=== PATIENT | male | born 1950 | race Two or more races ===

== ENCOUNTER 2016-05-03 12:01 | Inpatient (IN) | payer OTHER ==
[2016-05-03 13:46] VITALS: BMI 28.0
--- NOTE | 2016-05-03 14:17 | HP ---
Admission [facility] - [facility] Chief Complaint: I need help to stop drinking alcohol Allergies/Adverse Reactions: Allergies Allergy/AdvReac Type Severity Reaction Status Date / Time No Known Allergies Allergy Verified 06/29/14 12:30 History of Present Illness: 65 y/o m pt with h/o chronic alcoholism seeking rehab . Exam Limitations: No Limitations - Ebola screening Have you traveled outside of the country in the last 21 days: No Have you had contact with anyone from an Ebola affected area: No Have you been sick,other than usual withdrawal symptoms: No Do you have a fever: No - Review of Systems Musculoskeletal: reports: Muscle Weakness (lower extremities) Neuro: reports: Weakness Endocrine: reports: No Symptoms Reported Hematology: reports: No Symptoms Reported Psychiatric: reports: Agitated, Anxious Other Systems: Reviewed and Negative Patient History - Patient Medical History Hx Anemia: No Hx Asthma: No Hx Chronic Obstructive Pulmonary Disease (COPD): No Hx Cancer: No Hx Cardiac Disorders: No Hx Congestive Heart Failure: No Hx Hypertension: Yes (on meds.) Hx Hypercholesterolemia: Yes (on meds) Hx Pacemaker: No HX Cerebrovascular Accident: No Hx Seizures: Yes (seizures Last 05/27) Hx Dementia: No Hx Diabetes: Yes (TYPE II not on meds) Hx Gastrointestinal Disorders: No Hx Liver Disease: No Hx Genitourinary Disorders: No Hx Sexually Transmitted Disorders: No (HIV/aids 1994) Hx Renal Disease (ESRD): No Hx Thyroid Disease: No Hx Human Immunodeficiency Virus (HIV): Yes (HIV 1994) Hx Hepatitis C: Yes Hx Depression: Yes Hx Suicide Attempt: Yes (jump infront of the car 05/27) Hx Bipolar Disorder: No Hx Schizophrenia: Yes - Patient Surgical History Past Surgical History: Yes Hx Neurologic Surgery: No Hx Cataract Extraction: No Hx Cardiac Surgery: No Hx Lung Surgery: No Hx Breast Surgery: No Hx Breast Biopsy: No Hx Abdominal Surgery: Yes (left hernia repair ) Hx Appendectomy: No Hx Cholecystectomy: No Hx Genitourinary Surgery: No Hx Section: No Hx Orthopedic Surgery: Yes (surgery for polio as a child.la lower ext) Other Surgical History: Left inguinal hernia repair in 2004 Anesthesia Reaction: No - PPD History Documented Results: Positive w/o proof PPD to be Administered?: No - Reproductive History Patient is a Female of Child Bearing Age (11 -55 yrs old): Yes - Smoking Cessation Smoking history: Current every day smoker Have you smoked in the past 12 months: Yes Aproximately how many cigarettes per day: 1 Cigars Per Day: 0 Hx Chewing Tobacco Use: No Initiated information on smoking cessation: Yes 'Breaking Loose' booklet given: 05/03/16 - Substance & Tx. History Hx Alcohol Use: Yes Hx Substance Use: No Substance Use Type: Alcohol Hx Substance Use Treatment: Yes - Substances Abused Alcohol Route: Oral Frequency: Daily Amount used: vodka 1pt/d, beer 10/d Age of first use: 11 Date of Last Use: 05/03/16 Family Disease History - Family Disease History Family Disease History: Other: Father (/alcoholic), Mother (), Brother (alcoholic/dug abuse) Admission Physical Exam [facility] - Vital Signs Vital Signs: Vital Signs - 24 hr 05/03/16 13:45 Temperature 97.1 F L Pulse Rate 101 H Respiratory 20 Rate Blood Pressure 138/93 65 y/o m pt aox3 ambulates with a cane in nad , cooperative nwith examq. - Physical General Appearance: Yes: Appropriately Dressed, Anxious HEENTM: Yes: EOMI, Hearing grossly Normal, Normal Voice, THERESA, Other (multiple missing teeth) Respiratory: Yes: Chest Non-Tender, Lungs Clear, Normal Breath Sounds, No Respiratory Distress Neck: Yes: Supple Breast: Yes: Within Normal Limits Cardiology: Yes: Regular Rhythm, Regular Rate, S1, S2 Abdominal: Yes: Increased Bowel Sounds, Protuberent, Distended, Hepatomegaly, Spleenomegaly Genitourinary: Yes: Frequency Back: Yes: Decreased Range of Motion Musculoskeletal: Yes: Other (abn. 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 NML intact, Fully Oriented, Alert, Motor Strength 5/5, Normal Response Integumentary: Yes: Within Normal Limits Lymphatic: Yes: Within Normal Limits - Diagnostic (1) AIDS Current Visit: Yes Status: Chronic (2) Alcohol dependence Current Visit: Yes Status: Chronic Qualifiers: Complication of substance-induced condition: with unspecified complication (3) Hypercholesteremia Current Visit: Yes Status: Chronic (4) Nicotine dependence Current Visit: Yes Status: Chronic Qualifiers: Nicotine product type: cigarettes Substance use status: uncomplicated Qualified Code(s): F17.210 - Nicotine dependence, cigarettes, uncomplicated (5) S/P clubfoot correction at Current Visit: No Status: Inactive (6) Poliomyelitis Current Visit: No Status: Inactive (7) Schizophrenia, paranoid type Current Visit: Yes Status: Chronic (8) Use of cane as ambulatory aid Current Visit: Yes Status: Chronic (9) Alcohol dependence with uncomplicated withdrawal Current Visit: Yes Status: Chronic Comment: pt was a [facility] from 04/18/16-04/26/16. Cleared for Admission [facility] - Detox or Rehab Claeared for Rehab Admission: Yes [facility] Breath Alcohol Content Breath Alcohol Content: 0.103 Urine Drug Screen - Results Drug Screen Negative: No Urine Drug Screen Results: BZO-Benzodiazepines
[2016-05-03] MEDS ORDERED: ACETAMINOPHEN 325 MG TABLET (FP) PO PRN (14:41)
[2016-05-03] MEDS ORDERED: LOPERAMIDE HCL 2 MG CAPSULE PO PRN (14:41)
[2016-05-03] MEDS ORDERED: IBUPROFEN 400 MG TABLET (FP) PO PRN (14:41)
[2016-05-03] MEDS ORDERED: MAG HYDROX/AL HYDROX/SIMETH 30 ML UNIT-DOSE CUP PO PRN (14:41)
[2016-05-03] MEDS ORDERED: P-EPHED 60MG/TRIPROLIDI 2.5MG TABLET PO PRN (14:41)
[2016-05-03] MEDS ORDERED: NICOTINE POLACRILEX 2 MG GUM BC PRN (14:41)
[2016-05-03] MEDS ORDERED: diphenhydrAMINE HCL 50 MG CAPSULE PO PRN (14:41)
[2016-05-03] MEDS ORDERED: guaiFENesin/D-METHORPHAN HB 10 ML UNIT-DOSE CUPS PO PRN (14:41)
[2016-05-03] MEDS ORDERED: MAGNESIUM CITRATE 300 ML BOTTLE PO PRN (14:41)
[2016-05-03] MEDS ORDERED: MENTHOL/PHENOL 1 EACH UD MM PRN (14:41)
[2016-05-03] MEDS ORDERED: MAGNESIUM HYDROX 2400MG/30ML ORAL SUSPENSION 30 ML CUP PO PRN (14:41)
[2016-05-03] MEDS: GEMFIBROZIL 600 MG TABLET (FP) PO SCH (17:19)
[2016-05-03 20:35] LABS: URINE APPEARANCE CLEAR; URINE BILIRUBIN NEGATIVE (NEGATIVE); URINE COLOR COLORLESS; URINE GLUCOSE (UA) NEGATIVE (NEGATIVE); URINE KETONE NEGATIVE (NEGATIVE); URINE LEUK ESTERASE NEGATIVE (NEGATIVE); URINE NITRITE NEGATIVE (NEGATIVE); URINE UROBILINOGEN NEGATIVE E.U./dl (0.2-1.0)
[2016-05-03 20:38] LABS: URINE BLOOD 1+ (NEGATIVE); URINE PROTEIN 2+ (NEGATIVE)
[2016-05-03 21:01] LABS: URINE BACTERIA RARE /hpf (NONE SEEN); URINE MUCUS RARE; URINE RBC <1 /hpf (0-3); URINE WBC <1 /hpf (3-5)
[2016-05-03] MEDS: levETIRAcetam 500 MG TABLET (FP) PO SCH (21:16)
[2016-05-03] MEDS: ABACAVIR SULFATE 300 MG TABLET PO SCH (21:16)
[2016-05-03] MEDS: GABAPENTIN 300 MG CAPSULE (FP) PO SCH (21:17)
[2016-05-03] MEDS: THIAMINE HCL 100 MG TABLET (FP) PO SCH (21:17)
[2016-05-04] MEDS: GABAPENTIN 300 MG CAPSULE (FP) PO SCH ×3 (06:19→21:09)
[2016-05-04] MEDS: GEMFIBROZIL 600 MG TABLET (FP) PO SCH ×2 (06:40→16:51)
[2016-05-04] MEDS ORDERED: PATIENT'S OWN MEDICATION (NON-FORMULARY) (Abacavir Sulfate/Lamivudine [Epzicom -] 1 TAB) PO SCH (10:00)
[2016-05-04 10:08] LABS: MCH 29.3 pg (25.7-33.7); MCHC 33.1 g/dl (32.0-35.9); MEAN CELL VOLUME 88.3 fl (80-96); MEAN PLT VOLUME 9.6 fl (7.5-11.1); PLATELET COUNT 232 K/MM3 (134-434); RDW 14.8 % (11.9-15.9); WHITE BLOOD COUNT 5.3 K/mm3 (4.0-10.0)
[2016-05-04] MEDS: ERGOCALCIFEROL (VITAMIN D2) 50,000 UNIT CAPSULE (FP) PO SCH (10:25)
[2016-05-04] MEDS: DAPSONE 100 MG TABLET PO SCH (10:26)
[2016-05-04] MEDS: RITONAVIR 100 MG TABLET PO SCH (10:26)
[2016-05-04] MEDS: PRENATAL VITAMINS W/ FOLIC ACID TABLET (FP) PO SCH (10:26)
[2016-05-04] MEDS: DARUNAVIR ETHANOLATE 800 MG TAB PO SCH (10:28)
[2016-05-04] MEDS: PANTOPRAZOLE 40 MG TABLET (FP) PO SCH (10:29)
[2016-05-04] MEDS: HYDROCHLOROTHIAZIDE 25 MG TABLET (FP) PO SCH (10:29)
[2016-05-04] MEDS: levETIRAcetam 500 MG TABLET (FP) PO SCH ×2 (10:29→21:09)
[2016-05-04] MEDS: ABACAVIR SULFATE 300 MG TABLET PO SCH ×2 (10:29→21:09)
[2016-05-04] MEDS: METOPROLOL SUCCINATE 25 MG TAB.SR.24H (FP) PO SCH (10:29)
[2016-05-04 11:16] LABS: ALBUMIN 2.7 g/dl (3.4-5.0); ALK PHOS 72 U/L (45-117); ANION GAP 12 (8-16); BILIRUBIN,TOTAL 0.5 mg/dL (0.2-1.0); CALCIUM 8.5 mg/dL (8.5-10.1); CO2 22 mmol/L (21-32); CREATININE 1.2 mg/dL (0.7-1.3); GLUCOSE,RANDOM 90 mg/dL (74-106); SGOT/AST 70 U/L (15-37); SGPT/ALT 74 U/L (12-78); TOT PROT 8.7 g/dl (6.4-8.2)
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
--- NOTE | 2016-05-04 17:15 | EKG ---
Test Reason : Blood Pressure : / mmHG Vent. Rate : 106 BPM Atrial Rate : 106 BPM P-R Int : 176 ms QRS Dur : 080 ms QT Int : 320 ms P-R-T Axes : 071 061 121 degrees QTc Int : 425 ms SINUS TACHYCARDIA NONSPECIFIC T WAVE ABNORMALITY ABNORMAL ECG NO PREVIOUS ECGS AVAILABLE Confirmed by BESSY MARES MD ([id number]) on 05/04/2016 5:15:26 PM Referred By: Confirmed By:BESSY MARES MD
[2016-05-04] MEDS: QUEtiapine FUMARATE 100 MG TABLET (FP) PO SCH (21:09)
[2016-05-04] MEDS: THIAMINE HCL 100 MG TABLET (FP) PO SCH (21:09)
[2016-05-05] MEDS: GEMFIBROZIL 600 MG TABLET (FP) PO SCH ×2 (06:18→16:54)
[2016-05-05] MEDS: GABAPENTIN 300 MG CAPSULE (FP) PO SCH ×3 (06:18→21:06)
[2016-05-05] MEDS: DARUNAVIR ETHANOLATE 800 MG TAB PO SCH (09:50)
[2016-05-05] MEDS: PANTOPRAZOLE 40 MG TABLET (FP) PO SCH (09:50)
[2016-05-05] MEDS: ABACAVIR SULFATE 300 MG TABLET PO SCH ×2 (09:50→21:06)
[2016-05-05] MEDS: levETIRAcetam 500 MG TABLET (FP) PO SCH ×2 (09:50→21:06)
[2016-05-05] MEDS: HYDROCHLOROTHIAZIDE 25 MG TABLET (FP) PO SCH (09:50)
[2016-05-05] MEDS: DAPSONE 100 MG TABLET PO SCH (09:50)
[2016-05-05] MEDS: PRENATAL VITAMINS W/ FOLIC ACID TABLET (FP) PO SCH (09:50)
[2016-05-05] MEDS: METOPROLOL SUCCINATE 25 MG TAB.SR.24H (FP) PO SCH (09:50)
[2016-05-05] MEDS: RITONAVIR 100 MG TABLET PO SCH (09:52)
[2016-05-05] MEDS: PARoxetine HCL 20 MG TABLET (FP) PO SCH (10:53)
[2016-05-05] MEDS: QUEtiapine FUMARATE 100 MG TABLET (FP) PO SCH (21:06)
[2016-05-05] MEDS: THIAMINE HCL 100 MG TABLET (FP) PO SCH (21:06)
[2016-05-06] MEDS: GABAPENTIN 300 MG CAPSULE (FP) PO SCH ×3 (06:22→21:07)
[2016-05-06] MEDS: GEMFIBROZIL 600 MG TABLET (FP) PO SCH ×2 (06:22→16:43)
[2016-05-06] MEDS: DAPSONE 100 MG TABLET PO SCH (10:26)
[2016-05-06] MEDS: HYDROCHLOROTHIAZIDE 25 MG TABLET (FP) PO SCH (10:26)
[2016-05-06] MEDS: PARoxetine HCL 20 MG TABLET (FP) PO SCH (10:26)
[2016-05-06] MEDS: levETIRAcetam 500 MG TABLET (FP) PO SCH ×2 (10:26→21:07)
[2016-05-06] MEDS: PANTOPRAZOLE 40 MG TABLET (FP) PO SCH (10:26)
[2016-05-06] MEDS: PRENATAL VITAMINS W/ FOLIC ACID TABLET (FP) PO SCH (10:26)
[2016-05-06] MEDS: RITONAVIR 100 MG TABLET PO SCH (10:26)
[2016-05-06] MEDS: DARUNAVIR ETHANOLATE 800 MG TAB PO SCH (10:26)
[2016-05-06] MEDS: METOPROLOL SUCCINATE 25 MG TAB.SR.24H (FP) PO SCH (10:26)
[2016-05-06] MEDS: ABACAVIR SULFATE 300 MG TABLET PO SCH ×2 (10:26→21:07)
[2016-05-06] MEDS: THIAMINE HCL 100 MG TABLET (FP) PO SCH (21:07)
[2016-05-06] MEDS: QUEtiapine FUMARATE 100 MG TABLET (FP) PO SCH (21:08)
[2016-05-07] MEDS: GEMFIBROZIL 600 MG TABLET (FP) PO SCH ×2 (06:10→17:00)
[2016-05-07] MEDS: GABAPENTIN 300 MG CAPSULE (FP) PO SCH ×3 (06:10→21:18)
[2016-05-07] MEDS: PANTOPRAZOLE 40 MG TABLET (FP) PO SCH (10:42)
[2016-05-07] MEDS: DAPSONE 100 MG TABLET PO SCH (10:43)
[2016-05-07] MEDS: HYDROCHLOROTHIAZIDE 25 MG TABLET (FP) PO SCH (10:43)
[2016-05-07] MEDS: METOPROLOL SUCCINATE 25 MG TAB.SR.24H (FP) PO SCH (10:43)
[2016-05-07] MEDS: ABACAVIR SULFATE 300 MG TABLET PO SCH ×2 (10:43→21:17)
[2016-05-07] MEDS: PRENATAL VITAMINS W/ FOLIC ACID TABLET (FP) PO SCH (10:43)
[2016-05-07] MEDS: DARUNAVIR ETHANOLATE 800 MG TAB PO SCH (10:43)
[2016-05-07] MEDS: PARoxetine HCL 20 MG TABLET (FP) PO SCH (10:43)
[2016-05-07] MEDS: levETIRAcetam 500 MG TABLET (FP) PO SCH ×2 (10:43→21:17)
[2016-05-07] MEDS: RITONAVIR 100 MG TABLET PO SCH (10:44)
[2016-05-07] MEDS: QUEtiapine FUMARATE 100 MG TABLET (FP) PO SCH (21:17)
[2016-05-07] MEDS: THIAMINE HCL 100 MG TABLET (FP) PO SCH (21:17)
[2016-05-08] MEDS: GEMFIBROZIL 600 MG TABLET (FP) PO SCH ×2 (06:20→16:50)
[2016-05-08] MEDS: GABAPENTIN 300 MG CAPSULE (FP) PO SCH ×3 (06:21→21:09)
[2016-05-08] MEDS: HYDROCHLOROTHIAZIDE 25 MG TABLET (FP) PO SCH (09:56)
[2016-05-08] MEDS: PANTOPRAZOLE 40 MG TABLET (FP) PO SCH (09:56)
[2016-05-08] MEDS: PRENATAL VITAMINS W/ FOLIC ACID TABLET (FP) PO SCH (09:56)
[2016-05-08] MEDS: levETIRAcetam 500 MG TABLET (FP) PO SCH ×2 (09:56→21:08)
[2016-05-08] MEDS: ABACAVIR SULFATE 300 MG TABLET PO SCH ×2 (09:56→21:08)
[2016-05-08] MEDS: DAPSONE 100 MG TABLET PO SCH (09:56)
[2016-05-08] MEDS: DARUNAVIR ETHANOLATE 800 MG TAB PO SCH (09:57)
[2016-05-08] MEDS: METOPROLOL SUCCINATE 25 MG TAB.SR.24H (FP) PO SCH (09:57)
[2016-05-08] MEDS: PARoxetine HCL 20 MG TABLET (FP) PO SCH (09:57)
[2016-05-08] MEDS: RITONAVIR 100 MG TABLET PO SCH (09:57)
--- NOTE | 2016-05-08 13:42 | PN ---
Psychiatric Progress Note Vital Signs: Vital Signs Period Temp Pulse Resp BP Sys/Alejandre Pulse Ox Last 24 Hr 97.3 F 92 18-18 141/89 Date of Session: 05/08/16 Chief Complaint:: progress update HPI: Patient is addressing alcohol dependence comorbid Schizophrenia ROS: HTN, Seizure Disorder, type II DM and HIV+ medically managed. Current Medications: Active Medications Generic Name Dose Route Start Last Admin Trade Name Freq PRN Reason Stop Dose Admin Abacavir Sulfate 300 mg 05/03/16 22:00 05/08/16 09:56 Ziagen - PO 300 mg BID IDA Administration Acetaminophen 650 mg 05/03/16 14:41 Tylenol - PO Q4H PRN PAIN Al Hydroxide/Mg Hydroxide 30 ml 05/03/16 14:41 Mylanta Oral Suspension - PO Q6H PRN DYSPEPSIA Dapsone 100 mg 05/04/16 10:00 05/08/16 09:56 Dapsone - PO 100 mg DAILY IDA Administration Darunavir 800 mg 05/04/16 10:00 05/08/16 09:57 Prezista - PO 800 mg DAILY IDA Administration Diphenhydramine HCl 50 mg 05/03/16 14:41 Benadryl - PO HSMR1 PRN INSOMNIA Ergocalciferol 50,000 unit 05/04/16 10:00 05/04/16 10:25 Drisdol - PO 50,000 unit Th@1000 IDA Administration Eucalyptus/Menthol/Phenol/Sorbitol 1 each 05/03/16 14:41 Cepastat Lozenge - MM Q4H PRN SORE THROAT Gabapentin 300 mg 05/03/16 22:00 05/08/16 06:21 Neurontin - PO 300 mg TID IDA Administration Gemfibrozil 600 mg 05/03/16 16:30 05/08/16 06:20 Lopid - PO 600 mg BIDAC IDA Administration Guaifenesin 10 ml 05/03/16 14:41 Robitussin Dm - PO Q6H PRN COUGH Hydrochlorothiazide 25 mg 05/04/16 10:00 05/08/16 09:56 Hctz - PO 25 mg DAILY IDA Administration Ibuprofen 400 mg 05/03/16 14:41 Motrin - PO Q6H PRN SEVERE PAIN Lamivudine 300 mg 05/04/16 10:00 05/08/16 09:56 Epivir - PO 300 mg DAILY IDA Administration Levetiracetam 500 mg 05/03/16 22:00 05/08/16 09:56 Keppra - PO 500 mg BID IDA Administration Loperamide HCl 4 mg 05/03/16 14:41 Imodium - PO Q6H PRN DIARRHEA Magnesium Citrate 300 ml 05/03/16 14:41 Citroma - PO Q48H PRN CONSTIPATION Magnesium Hydroxide 30 ml 05/03/16 14:41 Milk Of Magnesia - PO DAILY PRN CONSTIPATION Metoprolol Succinate 25 mg 05/04/16 10:00 05/08/16 09:57 Toprol Xl - PO 25 mg DAILY IDA Administration Nicotine Polacrilex 2 mg 05/03/16 14:41 Nicorette Gum - BC Q2H PRN NICOTINE REPLACEMENT RX Pantoprazole Sodium 40 mg 05/04/16 10:00 05/08/16 09:56 Protonix - PO 40 mg DAILY IDA Administration Paroxetine HCl 40 mg 05/05/16 10:00 05/08/16 09:57 Paxil - PO 40 mg DAILY IDA Administration Multivit/Folic Acid/Iron 1 tab 05/04/16 10:00 05/08/16 09:56 Vitamins (Sjr) - PO 1 tab DAILY IDA Administration Pseudoephedrine/Triprolidine 1 combo 05/03/16 14:41 Actifed - PO TID PRN NASAL CONGESTION Quetiapine Fumarate 100 mg 05/04/16 22:00 05/07/16 21:17 Seroquel - PO 100 mg HS IDA Administration Ritonavir 100 mg 05/04/16 10:00 05/08/16 09:57 Norvir - PO 100 mg DAILY IDA Administration Thiamine HCl 100 mg 05/03/16 22:00 05/07/16 21:17 Vitamin B1 - PO 100 mg HS IDA Administration Medication(s) Change(s): increase Seoquel 200 mg/hs Current Side Effect: No Lab tests ordered: No Lab tests reviewed: Yes Provider note:: Patient generally adjusted well to the unit, he attends groups, he reports that he has racing thoughts at nights which keep him up all nigghts, recalls was on 400 mg po Seroquel discussed indications/properties of medications, will increase. Sleeping hygiene discussed with the patient, will continue to monitor progress. Total face to face time:: 30 Mental Status Exam - Mental Status Exam Alert and Oriented to: Time, Place, Person Cognitive Function: Good Patient Appearance: Well Groomed Mood: Sad, Anxious Affect: Appropriate, Mood Congruent Patient Behavior: Appropriate, Cooperative Speech Pattern: Clear, Appropriate Voice Loudness: Normal Thought Process: Intact, Goal Oriented Thought Disorder: Not Present Hallucinations: Denies Suicidal Ideation: Denies Homicidal Ideation: Denies Insight/Judgement: Fair Sleep: Poorly, Difficulty falling asleep Appetite: Good Muscle strength/Tone: Normal Gait/Station: Normal Psychiatric Treatment Plan - Problem List (1) Alcohol dependence Current Visit: Yes Qualifiers: Complication of substance-induced condition: with unspecified complication (2) Hypercholesteremia Current Visit: Yes (3) Nicotine dependence Current Visit: Yes Qualifiers: Nicotine product type: cigarettes Substance use status: uncomplicated Qualified Code(s): F17.210 - Nicotine dependence, cigarettes, uncomplicated (4) Paranoid schizophrenia Current Visit: Yes (5) Use of cane as ambulatory aid Current Visit: Yes
[2016-05-08] MEDS: THIAMINE HCL 100 MG TABLET (FP) PO SCH (21:08)
[2016-05-08] MEDS: QUEtiapine FUMARATE 200 MG TABLET PO SCH (21:09)
[2016-05-09] MEDS: GABAPENTIN 300 MG CAPSULE (FP) PO SCH ×3 (06:32→21:35)
[2016-05-09] MEDS: GEMFIBROZIL 600 MG TABLET (FP) PO SCH ×2 (06:32→16:55)
[2016-05-09] MEDS: PANTOPRAZOLE 40 MG TABLET (FP) PO SCH (09:29)
[2016-05-09] MEDS: DAPSONE 100 MG TABLET PO SCH (09:29)
[2016-05-09] MEDS: METOPROLOL SUCCINATE 25 MG TAB.SR.24H (FP) PO SCH (09:29)
[2016-05-09] MEDS: HYDROCHLOROTHIAZIDE 25 MG TABLET (FP) PO SCH (09:29)
[2016-05-09] MEDS: ABACAVIR SULFATE 300 MG TABLET PO SCH ×2 (09:29→21:35)
[2016-05-09] MEDS: DARUNAVIR ETHANOLATE 800 MG TAB PO SCH (09:30)
[2016-05-09] MEDS: levETIRAcetam 500 MG TABLET (FP) PO SCH ×2 (09:30→21:35)
[2016-05-09] MEDS: RITONAVIR 100 MG TABLET PO SCH (09:30)
[2016-05-09] MEDS: PARoxetine HCL 20 MG TABLET (FP) PO SCH (09:30)
[2016-05-09] MEDS: PRENATAL VITAMINS W/ FOLIC ACID TABLET (FP) PO SCH (09:32)
[2016-05-09] MEDS: THIAMINE HCL 100 MG TABLET (FP) PO SCH (21:35)
[2016-05-09] MEDS: QUEtiapine FUMARATE 200 MG TABLET PO SCH (21:35)
[2016-05-10] MEDS: GEMFIBROZIL 600 MG TABLET (FP) PO SCH ×2 (06:20→17:01)
[2016-05-10] MEDS: GABAPENTIN 300 MG CAPSULE (FP) PO SCH ×3 (06:20→21:07)
[2016-05-10] MEDS: ABACAVIR SULFATE 300 MG TABLET PO SCH ×2 (10:37→21:07)
[2016-05-10] MEDS: PARoxetine HCL 20 MG TABLET (FP) PO SCH (10:37)
[2016-05-10] MEDS: DAPSONE 100 MG TABLET PO SCH (10:37)
[2016-05-10] MEDS: levETIRAcetam 500 MG TABLET (FP) PO SCH ×2 (10:37→21:08)
[2016-05-10] MEDS: PANTOPRAZOLE 40 MG TABLET (FP) PO SCH (10:37)
[2016-05-10] MEDS: METOPROLOL SUCCINATE 25 MG TAB.SR.24H (FP) PO SCH (10:37)
[2016-05-10] MEDS: HYDROCHLOROTHIAZIDE 25 MG TABLET (FP) PO SCH (10:38)
[2016-05-10] MEDS: DARUNAVIR ETHANOLATE 800 MG TAB PO SCH (10:38)
[2016-05-10] MEDS: RITONAVIR 100 MG TABLET PO SCH (10:38)
[2016-05-10] MEDS: PRENATAL VITAMINS W/ FOLIC ACID TABLET (FP) PO SCH (10:38)
[2016-05-10] MEDS: QUEtiapine FUMARATE 200 MG TABLET PO SCH (21:07)
[2016-05-10] MEDS: THIAMINE HCL 100 MG TABLET (FP) PO SCH (21:07)
[2016-05-11] MEDS: GABAPENTIN 300 MG CAPSULE (FP) PO SCH ×3 (06:17→21:45)
[2016-05-11] MEDS: GEMFIBROZIL 600 MG TABLET (FP) PO SCH ×2 (06:17→16:42)
[2016-05-11] MEDS: DARUNAVIR ETHANOLATE 800 MG TAB PO SCH (10:34)
[2016-05-11] MEDS: ABACAVIR SULFATE 300 MG TABLET PO SCH ×2 (10:34→21:45)
[2016-05-11] MEDS: METOPROLOL SUCCINATE 25 MG TAB.SR.24H (FP) PO SCH (10:34)
[2016-05-11] MEDS: PARoxetine HCL 20 MG TABLET (FP) PO SCH (10:34)
[2016-05-11] MEDS: levETIRAcetam 500 MG TABLET (FP) PO SCH ×2 (10:34→21:45)
[2016-05-11] MEDS: DAPSONE 100 MG TABLET PO SCH (10:34)
[2016-05-11] MEDS: PANTOPRAZOLE 40 MG TABLET (FP) PO SCH (10:34)
[2016-05-11] MEDS: HYDROCHLOROTHIAZIDE 25 MG TABLET (FP) PO SCH (10:34)
[2016-05-11] MEDS: PRENATAL VITAMINS W/ FOLIC ACID TABLET (FP) PO SCH (10:34)
[2016-05-11] MEDS: RITONAVIR 100 MG TABLET PO SCH (10:40)
[2016-05-11] MEDS: ERGOCALCIFEROL (VITAMIN D2) 50,000 UNIT CAPSULE (FP) PO SCH (12:00)
[2016-05-11] MEDS: THIAMINE HCL 100 MG TABLET (FP) PO SCH (21:45)
[2016-05-11] MEDS: QUEtiapine FUMARATE 200 MG TABLET PO SCH (21:45)
[2016-05-12] MEDS: GABAPENTIN 300 MG CAPSULE (FP) PO SCH ×3 (06:47→21:07)
[2016-05-12] MEDS: GEMFIBROZIL 600 MG TABLET (FP) PO SCH ×2 (06:47→16:41)
[2016-05-12] MEDS: PARoxetine HCL 20 MG TABLET (FP) PO SCH (10:39)
[2016-05-12] MEDS: levETIRAcetam 500 MG TABLET (FP) PO SCH ×2 (10:39→21:07)
[2016-05-12] MEDS: METOPROLOL SUCCINATE 25 MG TAB.SR.24H (FP) PO SCH (10:39)
[2016-05-12] MEDS: ABACAVIR SULFATE 300 MG TABLET PO SCH ×2 (10:39→21:07)
[2016-05-12] MEDS: DAPSONE 100 MG TABLET PO SCH (10:39)
[2016-05-12] MEDS: PANTOPRAZOLE 40 MG TABLET (FP) PO SCH (10:39)
[2016-05-12] MEDS: HYDROCHLOROTHIAZIDE 25 MG TABLET (FP) PO SCH (10:39)
[2016-05-12] MEDS: PRENATAL VITAMINS W/ FOLIC ACID TABLET (FP) PO SCH (10:39)
[2016-05-12] MEDS: DARUNAVIR ETHANOLATE 800 MG TAB PO SCH (10:39)
[2016-05-12] MEDS: RITONAVIR 100 MG TABLET PO SCH (10:40)
[2016-05-12] MEDS: THIAMINE HCL 100 MG TABLET (FP) PO SCH (21:07)
[2016-05-12] MEDS: QUEtiapine FUMARATE 200 MG TABLET PO SCH (21:07)
[2016-05-13] MEDS: GEMFIBROZIL 600 MG TABLET (FP) PO SCH ×2 (06:28→16:46)
[2016-05-13] MEDS: GABAPENTIN 300 MG CAPSULE (FP) PO SCH ×3 (06:29→21:22)
[2016-05-13] MEDS: DARUNAVIR ETHANOLATE 800 MG TAB PO SCH (10:29)
[2016-05-13] MEDS: ABACAVIR SULFATE 300 MG TABLET PO SCH ×2 (10:29→21:22)
[2016-05-13] MEDS: DAPSONE 100 MG TABLET PO SCH (10:29)
[2016-05-13] MEDS: METOPROLOL SUCCINATE 25 MG TAB.SR.24H (FP) PO SCH (10:29)
[2016-05-13] MEDS: levETIRAcetam 500 MG TABLET (FP) PO SCH ×2 (10:29→21:22)
[2016-05-13] MEDS: PANTOPRAZOLE 40 MG TABLET (FP) PO SCH (10:29)
[2016-05-13] MEDS: HYDROCHLOROTHIAZIDE 25 MG TABLET (FP) PO SCH (10:29)
[2016-05-13] MEDS: PARoxetine HCL 20 MG TABLET (FP) PO SCH (10:30)
[2016-05-13] MEDS: RITONAVIR 100 MG TABLET PO SCH (10:30)
[2016-05-13] MEDS: PRENATAL VITAMINS W/ FOLIC ACID TABLET (FP) PO SCH (10:30)
[2016-05-13] MEDS: QUEtiapine FUMARATE 200 MG TABLET PO SCH (21:22)
[2016-05-13] MEDS: THIAMINE HCL 100 MG TABLET (FP) PO SCH (21:22)
[2016-05-14] MEDS: GEMFIBROZIL 600 MG TABLET (FP) PO SCH ×2 (06:37→16:39)
[2016-05-14] MEDS: GABAPENTIN 300 MG CAPSULE (FP) PO SCH ×3 (06:37→21:08)
[2016-05-14] MEDS: RITONAVIR 100 MG TABLET PO SCH (10:33)
[2016-05-14] MEDS: PARoxetine HCL 20 MG TABLET (FP) PO SCH (10:33)
[2016-05-14] MEDS: PANTOPRAZOLE 40 MG TABLET (FP) PO SCH (10:34)
[2016-05-14] MEDS: HYDROCHLOROTHIAZIDE 25 MG TABLET (FP) PO SCH (10:34)
[2016-05-14] MEDS: PRENATAL VITAMINS W/ FOLIC ACID TABLET (FP) PO SCH (10:34)
[2016-05-14] MEDS: METOPROLOL SUCCINATE 25 MG TAB.SR.24H (FP) PO SCH (10:34)
[2016-05-14] MEDS: levETIRAcetam 500 MG TABLET (FP) PO SCH ×2 (10:34→21:08)
[2016-05-14] MEDS: DAPSONE 100 MG TABLET PO SCH (10:34)
[2016-05-14] MEDS: DARUNAVIR ETHANOLATE 800 MG TAB PO SCH (10:35)
[2016-05-14] MEDS: ABACAVIR SULFATE 300 MG TABLET PO SCH ×2 (10:35→21:08)
[2016-05-14] MEDS: QUEtiapine FUMARATE 200 MG TABLET PO SCH (21:08)
[2016-05-14] MEDS: THIAMINE HCL 100 MG TABLET (FP) PO SCH (21:08)
[2016-05-15] MEDS: GEMFIBROZIL 600 MG TABLET (FP) PO SCH ×2 (06:12→16:44)
[2016-05-15] MEDS: GABAPENTIN 300 MG CAPSULE (FP) PO SCH ×3 (06:12→21:10)
[2016-05-15] MEDS: PRENATAL VITAMINS W/ FOLIC ACID TABLET (FP) PO SCH (10:27)
[2016-05-15] MEDS: levETIRAcetam 500 MG TABLET (FP) PO SCH ×2 (10:27→21:10)
[2016-05-15] MEDS: DARUNAVIR ETHANOLATE 800 MG TAB PO SCH (10:27)
[2016-05-15] MEDS: HYDROCHLOROTHIAZIDE 25 MG TABLET (FP) PO SCH (10:27)
[2016-05-15] MEDS: ABACAVIR SULFATE 300 MG TABLET PO SCH ×2 (10:27→21:10)
[2016-05-15] MEDS: PARoxetine HCL 20 MG TABLET (FP) PO SCH (10:27)
[2016-05-15] MEDS: METOPROLOL SUCCINATE 25 MG TAB.SR.24H (FP) PO SCH (10:27)
[2016-05-15] MEDS: DAPSONE 100 MG TABLET PO SCH (10:27)
[2016-05-15] MEDS: PANTOPRAZOLE 40 MG TABLET (FP) PO SCH (10:27)
[2016-05-15] MEDS: RITONAVIR 100 MG TABLET PO SCH (10:28)
[2016-05-15] MEDS: QUEtiapine FUMARATE 200 MG TABLET PO SCH (21:10)
[2016-05-15] MEDS: THIAMINE HCL 100 MG TABLET (FP) PO SCH (21:10)
[2016-05-16] MEDS: GABAPENTIN 300 MG CAPSULE (FP) PO SCH ×3 (06:18→21:22)
[2016-05-16] MEDS: GEMFIBROZIL 600 MG TABLET (FP) PO SCH ×2 (06:18→16:47)
[2016-05-16] MEDS: METOPROLOL SUCCINATE 25 MG TAB.SR.24H (FP) PO SCH (10:20)
[2016-05-16] MEDS: HYDROCHLOROTHIAZIDE 25 MG TABLET (FP) PO SCH (10:20)
[2016-05-16] MEDS: PANTOPRAZOLE 40 MG TABLET (FP) PO SCH (10:20)
[2016-05-16] MEDS: DAPSONE 100 MG TABLET PO SCH (10:20)
[2016-05-16] MEDS: ABACAVIR SULFATE 300 MG TABLET PO SCH ×2 (10:20→21:22)
[2016-05-16] MEDS: PARoxetine HCL 20 MG TABLET (FP) PO SCH (10:20)
[2016-05-16] MEDS: levETIRAcetam 500 MG TABLET (FP) PO SCH ×2 (10:20→21:22)
[2016-05-16] MEDS: DARUNAVIR ETHANOLATE 800 MG TAB PO SCH (10:20)
[2016-05-16] MEDS: PRENATAL VITAMINS W/ FOLIC ACID TABLET (FP) PO SCH (10:20)
[2016-05-16] MEDS: RITONAVIR 100 MG TABLET PO SCH (10:21)
[2016-05-16] MEDS: THIAMINE HCL 100 MG TABLET (FP) PO SCH (21:22)
[2016-05-16] MEDS: QUEtiapine FUMARATE 200 MG TABLET PO SCH (21:22)
[2016-05-17] MEDS: GABAPENTIN 300 MG CAPSULE (FP) PO SCH ×3 (06:26→21:08)
[2016-05-17] MEDS: GEMFIBROZIL 600 MG TABLET (FP) PO SCH ×2 (06:26→16:41)
[2016-05-17] MEDS: METOPROLOL SUCCINATE 25 MG TAB.SR.24H (FP) PO SCH (10:41)
[2016-05-17] MEDS: DAPSONE 100 MG TABLET PO SCH (10:41)
[2016-05-17] MEDS: RITONAVIR 100 MG TABLET PO SCH (10:41)
[2016-05-17] MEDS: DARUNAVIR ETHANOLATE 800 MG TAB PO SCH (10:41)
[2016-05-17] MEDS: PRENATAL VITAMINS W/ FOLIC ACID TABLET (FP) PO SCH (10:41)
[2016-05-17] MEDS: PANTOPRAZOLE 40 MG TABLET (FP) PO SCH (10:41)
[2016-05-17] MEDS: levETIRAcetam 500 MG TABLET (FP) PO SCH ×2 (10:41→21:54)
[2016-05-17] MEDS: ABACAVIR SULFATE 300 MG TABLET PO SCH ×2 (10:41→21:07)
[2016-05-17] MEDS: HYDROCHLOROTHIAZIDE 25 MG TABLET (FP) PO SCH (10:41)
[2016-05-17] MEDS: PARoxetine HCL 20 MG TABLET (FP) PO SCH (10:41)
[2016-05-17] MEDS: QUEtiapine FUMARATE 200 MG TABLET PO SCH (21:07)
[2016-05-17] MEDS: THIAMINE HCL 100 MG TABLET (FP) PO SCH (21:07)
[2016-05-18] MEDS: GEMFIBROZIL 600 MG TABLET (FP) PO SCH ×2 (06:13→16:42)
[2016-05-18] MEDS: GABAPENTIN 300 MG CAPSULE (FP) PO SCH ×3 (06:13→21:16)
[2016-05-18] MEDS: ERGOCALCIFEROL (VITAMIN D2) 50,000 UNIT CAPSULE (FP) PO SCH (10:42)
[2016-05-18] MEDS: levETIRAcetam 500 MG TABLET (FP) PO SCH ×2 (10:42→21:16)
[2016-05-18] MEDS: ABACAVIR SULFATE 300 MG TABLET PO SCH ×2 (10:42→21:16)
[2016-05-18] MEDS: PARoxetine HCL 20 MG TABLET (FP) PO SCH (10:42)
[2016-05-18] MEDS: PANTOPRAZOLE 40 MG TABLET (FP) PO SCH (10:42)
[2016-05-18] MEDS: DARUNAVIR ETHANOLATE 800 MG TAB PO SCH (10:42)
[2016-05-18] MEDS: PRENATAL VITAMINS W/ FOLIC ACID TABLET (FP) PO SCH (10:42)
[2016-05-18] MEDS: DAPSONE 100 MG TABLET PO SCH (10:42)
[2016-05-18] MEDS: METOPROLOL SUCCINATE 25 MG TAB.SR.24H (FP) PO SCH (10:42)
[2016-05-18] MEDS: HYDROCHLOROTHIAZIDE 25 MG TABLET (FP) PO SCH (10:42)
[2016-05-18] MEDS: RITONAVIR 100 MG TABLET PO SCH (10:43)
[2016-05-18] MEDS: THIAMINE HCL 100 MG TABLET (FP) PO SCH (21:16)
[2016-05-18] MEDS: QUEtiapine FUMARATE 200 MG TABLET PO SCH (21:16)
[2016-05-19] MEDS: GABAPENTIN 300 MG CAPSULE (FP) PO SCH ×3 (06:06→21:04)
[2016-05-19] MEDS: GEMFIBROZIL 600 MG TABLET (FP) PO SCH ×2 (06:06→17:00)
[2016-05-19] MEDS: RITONAVIR 100 MG TABLET PO SCH (10:14)
[2016-05-19] MEDS: DARUNAVIR ETHANOLATE 800 MG TAB PO SCH (10:15)
[2016-05-19] MEDS: ABACAVIR SULFATE 300 MG TABLET PO SCH ×2 (10:15→21:04)
[2016-05-19] MEDS: DAPSONE 100 MG TABLET PO SCH (10:15)
[2016-05-19] MEDS: PRENATAL VITAMINS W/ FOLIC ACID TABLET (FP) PO SCH (10:15)
[2016-05-19] MEDS: METOPROLOL SUCCINATE 25 MG TAB.SR.24H (FP) PO SCH (10:15)
[2016-05-19] MEDS: levETIRAcetam 500 MG TABLET (FP) PO SCH ×2 (10:15→21:04)
[2016-05-19] MEDS: PANTOPRAZOLE 40 MG TABLET (FP) PO SCH (10:16)
[2016-05-19] MEDS: HYDROCHLOROTHIAZIDE 25 MG TABLET (FP) PO SCH (10:16)
[2016-05-19] MEDS: PARoxetine HCL 20 MG TABLET (FP) PO SCH (10:16)
[2016-05-19] MEDS: THIAMINE HCL 100 MG TABLET (FP) PO SCH (21:04)
[2016-05-19] MEDS: QUEtiapine FUMARATE 200 MG TABLET PO SCH (21:04)
[2016-05-20] MEDS: GABAPENTIN 300 MG CAPSULE (FP) PO SCH ×3 (06:17→21:11)
[2016-05-20] MEDS: GEMFIBROZIL 600 MG TABLET (FP) PO SCH ×2 (06:17→16:49)
[2016-05-20] MEDS: RITONAVIR 100 MG TABLET PO SCH (10:25)
[2016-05-20] MEDS: DAPSONE 100 MG TABLET PO SCH (10:28)
[2016-05-20] MEDS: PRENATAL VITAMINS W/ FOLIC ACID TABLET (FP) PO SCH (10:28)
[2016-05-20] MEDS: ABACAVIR SULFATE 300 MG TABLET PO SCH ×2 (10:28→21:10)
[2016-05-20] MEDS: METOPROLOL SUCCINATE 25 MG TAB.SR.24H (FP) PO SCH (10:29)
[2016-05-20] MEDS: DARUNAVIR ETHANOLATE 800 MG TAB PO SCH (10:29)
[2016-05-20] MEDS: PARoxetine HCL 20 MG TABLET (FP) PO SCH (10:29)
[2016-05-20] MEDS: levETIRAcetam 500 MG TABLET (FP) PO SCH ×2 (10:29→21:11)
[2016-05-20] MEDS: HYDROCHLOROTHIAZIDE 25 MG TABLET (FP) PO SCH (10:29)
[2016-05-20] MEDS: PANTOPRAZOLE 40 MG TABLET (FP) PO SCH (10:29)
[2016-05-20] MEDS: THIAMINE HCL 100 MG TABLET (FP) PO SCH (21:10)
[2016-05-20] MEDS: QUEtiapine FUMARATE 200 MG TABLET PO SCH (21:10)
[2016-05-21] MEDS: GABAPENTIN 300 MG CAPSULE (FP) PO SCH ×3 (06:08→21:15)
[2016-05-21] MEDS: GEMFIBROZIL 600 MG TABLET (FP) PO SCH ×2 (06:08→17:00)
[2016-05-21] MEDS: HYDROCHLOROTHIAZIDE 25 MG TABLET (FP) PO SCH (10:17)
[2016-05-21] MEDS: levETIRAcetam 500 MG TABLET (FP) PO SCH ×2 (10:17→21:15)
[2016-05-21] MEDS: DAPSONE 100 MG TABLET PO SCH (10:17)
[2016-05-21] MEDS: PARoxetine HCL 20 MG TABLET (FP) PO SCH (10:17)
[2016-05-21] MEDS: DARUNAVIR ETHANOLATE 800 MG TAB PO SCH (10:17)
[2016-05-21] MEDS: ABACAVIR SULFATE 300 MG TABLET PO SCH ×2 (10:17→21:15)
[2016-05-21] MEDS: PRENATAL VITAMINS W/ FOLIC ACID TABLET (FP) PO SCH (10:17)
[2016-05-21] MEDS: METOPROLOL SUCCINATE 25 MG TAB.SR.24H (FP) PO SCH (10:17)
[2016-05-21] MEDS: PANTOPRAZOLE 40 MG TABLET (FP) PO SCH (10:17)
[2016-05-21] MEDS: RITONAVIR 100 MG TABLET PO SCH (10:18)
[2016-05-21] MEDS: THIAMINE HCL 100 MG TABLET (FP) PO SCH (21:15)
[2016-05-21] MEDS: QUEtiapine FUMARATE 200 MG TABLET PO SCH (21:15)
[2016-05-22] MEDS: GEMFIBROZIL 600 MG TABLET (FP) PO SCH ×2 (06:26→16:38)
[2016-05-22] MEDS: GABAPENTIN 300 MG CAPSULE (FP) PO SCH ×3 (06:26→21:05)
[2016-05-22] MEDS ORDERED: PARoxetine HCL 10 MG TABLET (FP) ONE (08:50)
[2016-05-22] MEDS: PRENATAL VITAMINS W/ FOLIC ACID TABLET (FP) PO SCH (10:42)
[2016-05-22] MEDS: PARoxetine HCL 20 MG TABLET (FP) PO SCH (10:42)
[2016-05-22] MEDS: DAPSONE 100 MG TABLET PO SCH (10:43)
[2016-05-22] MEDS: METOPROLOL SUCCINATE 25 MG TAB.SR.24H (FP) PO SCH (10:43)
[2016-05-22] MEDS: PANTOPRAZOLE 40 MG TABLET (FP) PO SCH (10:43)
[2016-05-22] MEDS: HYDROCHLOROTHIAZIDE 25 MG TABLET (FP) PO SCH (10:43)
[2016-05-22] MEDS: RITONAVIR 100 MG TABLET PO SCH (10:44)
[2016-05-22] MEDS: DARUNAVIR ETHANOLATE 800 MG TAB PO SCH (10:44)
[2016-05-22] MEDS: levETIRAcetam 500 MG TABLET (FP) PO SCH ×2 (10:45→21:05)
[2016-05-22] MEDS: ABACAVIR SULFATE 300 MG TABLET PO SCH ×2 (10:46→21:04)
[2016-05-22] MEDS: THIAMINE HCL 100 MG TABLET (FP) PO SCH (21:04)
[2016-05-22] MEDS: QUEtiapine FUMARATE 200 MG TABLET PO SCH (21:05)
[2016-05-23] MEDS: GABAPENTIN 300 MG CAPSULE (FP) PO SCH ×3 (06:20→21:20)
[2016-05-23] MEDS: GEMFIBROZIL 600 MG TABLET (FP) PO SCH ×2 (06:20→16:56)
[2016-05-23] MEDS: ABACAVIR SULFATE 300 MG TABLET PO SCH ×2 (10:25→21:20)
[2016-05-23] MEDS: levETIRAcetam 500 MG TABLET (FP) PO SCH ×2 (10:25→21:20)
[2016-05-23] MEDS: HYDROCHLOROTHIAZIDE 25 MG TABLET (FP) PO SCH (10:25)
[2016-05-23] MEDS: DAPSONE 100 MG TABLET PO SCH (10:25)
[2016-05-23] MEDS: METOPROLOL SUCCINATE 25 MG TAB.SR.24H (FP) PO SCH (10:25)
[2016-05-23] MEDS: PANTOPRAZOLE 40 MG TABLET (FP) PO SCH (10:26)
[2016-05-23] MEDS: PRENATAL VITAMINS W/ FOLIC ACID TABLET (FP) PO SCH (10:26)
[2016-05-23] MEDS: PARoxetine HCL 20 MG TABLET (FP) PO SCH (10:26)
[2016-05-23] MEDS: RITONAVIR 100 MG TABLET PO SCH (10:28)
[2016-05-23] MEDS: DARUNAVIR ETHANOLATE 800 MG TAB PO SCH (13:56)
[2016-05-23] MEDS: QUEtiapine FUMARATE 200 MG TABLET PO SCH (21:20)
[2016-05-23] MEDS: THIAMINE HCL 100 MG TABLET (FP) PO SCH (21:20)
[2016-05-24] MEDS: GEMFIBROZIL 600 MG TABLET (FP) PO SCH ×2 (06:26→16:38)
[2016-05-24] MEDS: GABAPENTIN 300 MG CAPSULE (FP) PO SCH ×3 (06:27→21:11)
[2016-05-24] MEDS: PRENATAL VITAMINS W/ FOLIC ACID TABLET (FP) PO SCH (10:05)
[2016-05-24] MEDS: PANTOPRAZOLE 40 MG TABLET (FP) PO SCH (10:05)
[2016-05-24] MEDS: DARUNAVIR ETHANOLATE 800 MG TAB PO SCH (10:05)
[2016-05-24] MEDS: levETIRAcetam 500 MG TABLET (FP) PO SCH ×2 (10:05→21:11)
[2016-05-24] MEDS: DAPSONE 100 MG TABLET PO SCH (10:05)
[2016-05-24] MEDS: ABACAVIR SULFATE 300 MG TABLET PO SCH ×2 (10:05→21:11)
[2016-05-24] MEDS: METOPROLOL SUCCINATE 25 MG TAB.SR.24H (FP) PO SCH (10:05)
[2016-05-24] MEDS: PARoxetine HCL 20 MG TABLET (FP) PO SCH (10:05)
[2016-05-24] MEDS: HYDROCHLOROTHIAZIDE 25 MG TABLET (FP) PO SCH (10:05)
[2016-05-24] MEDS: RITONAVIR 100 MG TABLET PO SCH (10:06)
[2016-05-24] MEDS: THIAMINE HCL 100 MG TABLET (FP) PO SCH (21:11)
[2016-05-24] MEDS: QUEtiapine FUMARATE 200 MG TABLET PO SCH (21:11)
[2016-05-25] MEDS: GABAPENTIN 300 MG CAPSULE (FP) PO SCH ×3 (06:22→21:13)
[2016-05-25] MEDS: GEMFIBROZIL 600 MG TABLET (FP) PO SCH ×2 (06:22→16:48)
[2016-05-25] MEDS: METOPROLOL SUCCINATE 25 MG TAB.SR.24H (FP) PO SCH (10:09)
[2016-05-25] MEDS: PRENATAL VITAMINS W/ FOLIC ACID TABLET (FP) PO SCH (10:09)
[2016-05-25] MEDS: PANTOPRAZOLE 40 MG TABLET (FP) PO SCH (10:09)
[2016-05-25] MEDS: PARoxetine HCL 20 MG TABLET (FP) PO SCH (10:09)
[2016-05-25] MEDS: HYDROCHLOROTHIAZIDE 25 MG TABLET (FP) PO SCH (10:09)
[2016-05-25] MEDS: ABACAVIR SULFATE 300 MG TABLET PO SCH ×2 (10:09→21:12)
[2016-05-25] MEDS: levETIRAcetam 500 MG TABLET (FP) PO SCH ×2 (10:09→21:12)
[2016-05-25] MEDS: DARUNAVIR ETHANOLATE 800 MG TAB PO SCH (10:09)
[2016-05-25] MEDS: DAPSONE 100 MG TABLET PO SCH (10:09)
[2016-05-25] MEDS: RITONAVIR 100 MG TABLET PO SCH (10:11)
[2016-05-25] MEDS: ERGOCALCIFEROL (VITAMIN D2) 50,000 UNIT CAPSULE (FP) PO SCH (10:36)
[2016-05-25] MEDS: QUEtiapine FUMARATE 200 MG TABLET PO SCH (21:12)
[2016-05-25] MEDS: THIAMINE HCL 100 MG TABLET (FP) PO SCH (21:12)
[2016-05-26] MEDS: GEMFIBROZIL 600 MG TABLET (FP) PO SCH ×2 (06:17→16:45)
[2016-05-26] MEDS: GABAPENTIN 300 MG CAPSULE (FP) PO SCH ×3 (06:17→21:06)
[2016-05-26] MEDS: ABACAVIR SULFATE 300 MG TABLET PO SCH ×2 (09:53→21:06)
[2016-05-26] MEDS: PANTOPRAZOLE 40 MG TABLET (FP) PO SCH (09:53)
[2016-05-26] MEDS: PARoxetine HCL 20 MG TABLET (FP) PO SCH (09:53)
[2016-05-26] MEDS: METOPROLOL SUCCINATE 25 MG TAB.SR.24H (FP) PO SCH (09:53)
[2016-05-26] MEDS: DARUNAVIR ETHANOLATE 800 MG TAB PO SCH (09:53)
[2016-05-26] MEDS: HYDROCHLOROTHIAZIDE 25 MG TABLET (FP) PO SCH (09:53)
[2016-05-26] MEDS: RITONAVIR 100 MG TABLET PO SCH (09:53)
[2016-05-26] MEDS: PRENATAL VITAMINS W/ FOLIC ACID TABLET (FP) PO SCH (09:53)
[2016-05-26] MEDS: levETIRAcetam 500 MG TABLET (FP) PO SCH ×2 (09:53→21:06)
[2016-05-26] MEDS: DAPSONE 100 MG TABLET PO SCH (09:53)
[2016-05-26] MEDS: THIAMINE HCL 100 MG TABLET (FP) PO SCH (21:06)
[2016-05-26] MEDS: QUEtiapine FUMARATE 200 MG TABLET PO SCH (21:06)
[2016-05-27] MEDS: GABAPENTIN 300 MG CAPSULE (FP) PO SCH ×3 (06:40→21:06)
[2016-05-27] MEDS: GEMFIBROZIL 600 MG TABLET (FP) PO SCH ×2 (06:40→16:58)
[2016-05-27] MEDS: PANTOPRAZOLE 40 MG TABLET (FP) PO SCH (10:27)
[2016-05-27] MEDS: DARUNAVIR ETHANOLATE 800 MG TAB PO SCH (10:27)
[2016-05-27] MEDS: levETIRAcetam 500 MG TABLET (FP) PO SCH ×2 (10:27→21:06)
[2016-05-27] MEDS: PARoxetine HCL 20 MG TABLET (FP) PO SCH (10:27)
[2016-05-27] MEDS: ABACAVIR SULFATE 300 MG TABLET PO SCH ×2 (10:27→21:06)
[2016-05-27] MEDS: PRENATAL VITAMINS W/ FOLIC ACID TABLET (FP) PO SCH (10:27)
[2016-05-27] MEDS: METOPROLOL SUCCINATE 25 MG TAB.SR.24H (FP) PO SCH (10:27)
[2016-05-27] MEDS: HYDROCHLOROTHIAZIDE 25 MG TABLET (FP) PO SCH (10:27)
[2016-05-27] MEDS: RITONAVIR 100 MG TABLET PO SCH (10:28)
[2016-05-27] MEDS: DAPSONE 100 MG TABLET PO SCH (10:30)
[2016-05-27] MEDS: QUEtiapine FUMARATE 200 MG TABLET PO SCH (21:06)
[2016-05-27] MEDS: THIAMINE HCL 100 MG TABLET (FP) PO SCH (21:06)
[2016-05-28] MEDS: GEMFIBROZIL 600 MG TABLET (FP) PO SCH ×2 (06:41→17:23)
[2016-05-28] MEDS: GABAPENTIN 300 MG CAPSULE (FP) PO SCH ×3 (06:41→21:09)
[2016-05-28] MEDS: PARoxetine HCL 20 MG TABLET (FP) PO SCH (10:37)
[2016-05-28] MEDS: levETIRAcetam 500 MG TABLET (FP) PO SCH ×2 (10:37→21:09)
[2016-05-28] MEDS: ABACAVIR SULFATE 300 MG TABLET PO SCH ×2 (10:37→21:09)
[2016-05-28] MEDS: HYDROCHLOROTHIAZIDE 25 MG TABLET (FP) PO SCH (10:37)
[2016-05-28] MEDS: METOPROLOL SUCCINATE 25 MG TAB.SR.24H (FP) PO SCH (10:37)
[2016-05-28] MEDS: DARUNAVIR ETHANOLATE 800 MG TAB PO SCH (10:37)
[2016-05-28] MEDS: PRENATAL VITAMINS W/ FOLIC ACID TABLET (FP) PO SCH (10:37)
[2016-05-28] MEDS: DAPSONE 100 MG TABLET PO SCH (10:37)
[2016-05-28] MEDS: PANTOPRAZOLE 40 MG TABLET (FP) PO SCH (10:37)
[2016-05-28] MEDS: RITONAVIR 100 MG TABLET PO SCH (10:37)
[2016-05-28] MEDS: QUEtiapine FUMARATE 200 MG TABLET PO SCH (21:09)
[2016-05-28] MEDS: THIAMINE HCL 100 MG TABLET (FP) PO SCH (21:10)
[2016-05-29] MEDS: GABAPENTIN 300 MG CAPSULE (FP) PO SCH ×3 (06:14→21:13)
[2016-05-29] MEDS: GEMFIBROZIL 600 MG TABLET (FP) PO SCH ×2 (06:15→18:17)
[2016-05-29] MEDS: DARUNAVIR ETHANOLATE 800 MG TAB PO SCH (10:51)
[2016-05-29] MEDS: RITONAVIR 100 MG TABLET PO SCH (10:52)
[2016-05-29] MEDS: PARoxetine HCL 20 MG TABLET (FP) PO SCH (10:52)
[2016-05-29] MEDS: METOPROLOL SUCCINATE 25 MG TAB.SR.24H (FP) PO SCH (10:52)
[2016-05-29] MEDS: ABACAVIR SULFATE 300 MG TABLET PO SCH ×2 (10:52→21:13)
[2016-05-29] MEDS: PRENATAL VITAMINS W/ FOLIC ACID TABLET (FP) PO SCH (10:52)
[2016-05-29] MEDS: levETIRAcetam 500 MG TABLET (FP) PO SCH ×2 (10:52→21:13)
[2016-05-29] MEDS: PANTOPRAZOLE 40 MG TABLET (FP) PO SCH (10:53)
[2016-05-29] MEDS: HYDROCHLOROTHIAZIDE 25 MG TABLET (FP) PO SCH (10:53)
[2016-05-29] MEDS: DAPSONE 100 MG TABLET PO SCH (10:53)
[2016-05-29] MEDS: QUEtiapine FUMARATE 200 MG TABLET PO SCH (21:12)
[2016-05-29] MEDS: THIAMINE HCL 100 MG TABLET (FP) PO SCH (21:13)
[2016-05-30] MEDS: GABAPENTIN 300 MG CAPSULE (FP) PO SCH ×3 (06:13→21:21)
[2016-05-30] MEDS: GEMFIBROZIL 600 MG TABLET (FP) PO SCH ×2 (06:14→17:03)
[2016-05-30] MEDS: ABACAVIR SULFATE 300 MG TABLET PO SCH ×2 (10:06→21:21)
[2016-05-30] MEDS: levETIRAcetam 500 MG TABLET (FP) PO SCH ×2 (10:06→21:21)
[2016-05-30] MEDS: PANTOPRAZOLE 40 MG TABLET (FP) PO SCH (10:06)
[2016-05-30] MEDS: DARUNAVIR ETHANOLATE 800 MG TAB PO SCH (10:06)
[2016-05-30] MEDS: HYDROCHLOROTHIAZIDE 25 MG TABLET (FP) PO SCH (10:06)
[2016-05-30] MEDS: RITONAVIR 100 MG TABLET PO SCH (10:06)
[2016-05-30] MEDS: PRENATAL VITAMINS W/ FOLIC ACID TABLET (FP) PO SCH (10:06)
[2016-05-30] MEDS: PARoxetine HCL 20 MG TABLET (FP) PO SCH (10:06)
[2016-05-30] MEDS: METOPROLOL SUCCINATE 25 MG TAB.SR.24H (FP) PO SCH (10:06)
[2016-05-30] MEDS: DAPSONE 100 MG TABLET PO SCH (10:07)
[2016-05-30] MEDS: THIAMINE HCL 100 MG TABLET (FP) PO SCH (21:21)
[2016-05-30] MEDS: QUEtiapine FUMARATE 200 MG TABLET PO SCH (21:21)
[2016-05-31] MEDS: GEMFIBROZIL 600 MG TABLET (FP) PO SCH (06:19)
[2016-05-31] MEDS: GABAPENTIN 300 MG CAPSULE (FP) PO SCH (06:19)
[2016-05-31 07:03] VITALS: BP 125/86; PULSE 81; TEMP 97.9
--- NOTE | 2016-05-31 10:02 | PN ---
Psychiatric Progress Note Vital Signs: Vital Signs Period Temp Pulse Resp BP Sys/Alejandre Pulse Ox Last 24 Hr 97.9 F 80-81 16-18 125-128/86-87 Date of Session: 05/31/16 Chief Complaint:: discharge visit HPI: Patient addressing alcohol dependence comorbid Schizophrenia ROS: HTN, Seizure Disorder, type II DM and HIV+ medically managed. Current Medications: Active Medications Generic Name Dose Route Start Last Admin Trade Name Freq PRN Reason Stop Dose Admin Abacavir Sulfate 300 mg 05/03/16 22:00 05/30/16 21:21 Ziagen - PO 300 mg BID IDA Administration Acetaminophen 650 mg 05/03/16 14:41 Tylenol - PO Q4H PRN PAIN Al Hydroxide/Mg Hydroxide 30 ml 05/03/16 14:41 Mylanta Oral Suspension - PO Q6H PRN DYSPEPSIA Dapsone 100 mg 05/04/16 10:00 05/30/16 10:07 Dapsone - PO 100 mg DAILY IDA Administration Darunavir 800 mg 05/04/16 10:00 05/30/16 10:06 Prezista - PO 800 mg DAILY IDA Administration Diphenhydramine HCl 50 mg 05/03/16 14:41 Benadryl - PO HSMR1 PRN INSOMNIA Ergocalciferol 50,000 unit 05/04/16 10:00 05/25/16 10:36 Drisdol - PO 50,000 unit Th@1000 IDA Administration Eucalyptus/Menthol/Phenol/Sorbitol 1 each 05/03/16 14:41 Cepastat Lozenge - MM Q4H PRN SORE THROAT Gabapentin 300 mg 05/03/16 22:00 05/31/16 06:19 Neurontin - PO 300 mg TID IDA Administration Gemfibrozil 600 mg 05/03/16 16:30 05/31/16 06:19 Lopid - PO 600 mg BIDAC IDA Administration Guaifenesin 10 ml 05/03/16 14:41 Robitussin Dm - PO Q6H PRN COUGH Hydrochlorothiazide 25 mg 05/04/16 10:00 05/30/16 10:06 Hctz - PO 25 mg DAILY IDA Administration Ibuprofen 400 mg 05/03/16 14:41 Motrin - PO Q6H PRN SEVERE PAIN Lamivudine 300 mg 05/04/16 10:00 05/30/16 10:06 Epivir - PO 300 mg DAILY IDA Administration Levetiracetam 500 mg 05/03/16 22:00 05/30/16 21:21 Keppra - PO 500 mg BID IDA Administration Loperamide HCl 4 mg 05/03/16 14:41 Imodium - PO Q6H PRN DIARRHEA Magnesium Citrate 300 ml 05/03/16 14:41 Citroma - PO Q48H PRN CONSTIPATION Magnesium Hydroxide 30 ml 05/03/16 14:41 Milk Of Magnesia - PO DAILY PRN CONSTIPATION Metoprolol Succinate 25 mg 05/04/16 10:00 05/30/16 10:06 Toprol Xl - PO 25 mg DAILY IDA Administration Nicotine Polacrilex 2 mg 05/03/16 14:41 Nicorette Gum - BC Q2H PRN NICOTINE REPLACEMENT RX Pantoprazole Sodium 40 mg 05/04/16 10:00 05/30/16 10:06 Protonix - PO 40 mg DAILY IDA Administration Paroxetine HCl 40 mg 05/05/16 10:00 05/30/16 10:06 Paxil - PO 40 mg DAILY IDA Administration Multivit/Folic Acid/Iron 1 tab 05/04/16 10:00 05/30/16 10:06 Vitamins (Sjr) - PO 1 tab DAILY IDA Administration Pseudoephedrine/Triprolidine 1 combo 05/03/16 14:41 Actifed - PO TID PRN NASAL CONGESTION Quetiapine Fumarate 200 mg 05/08/16 22:00 05/30/16 21:21 Seroquel - PO 200 mg HS IDA Administration Ritonavir 100 mg 05/04/16 10:00 05/30/16 10:06 Norvir - PO 100 mg DAILY IDA Administration Thiamine HCl 100 mg 05/03/16 22:00 05/30/16 21:21 Vitamin B1 - PO 100 mg HS IDA Administration Current Side Effect: No Lab tests ordered: No Lab tests reviewed: Yes Provider note:: Patient has completed today his treatment and met his goals, will continue to address issues at [facility] outpatient treatment program. Patient reports he learned a lot throught this program, he verbalized his resolution to stay sober and adherent to every aspects of his aftercare treatment plans. Patient was encouraged to utilize all supports available to prevent relapse. Seroquel and Paxil well tolerated,scrips provide, patient is stable for discharge. Total face to face time:: 35 Mental Status Exam - Mental Status Exam Alert and Oriented to: Time, Place, Person Cognitive Function: Good Patient Appearance: Well Groomed Mood: Hopeful Affect: Appropriate, Mood Congruent Patient Behavior: Appropriate, Cooperative Speech Pattern: Clear, Appropriate Voice Loudness: Normal Thought Process: Intact, Goal Oriented Thought Disorder: Not Present Hallucinations: Denies Suicidal Ideation: Denies Homicidal Ideation: Denies Insight/Judgement: Fair Sleep: Fair Appetite: Fair Muscle strength/Tone: Normal Gait/Station: Normal Psychiatric Treatment Plan - Problem List (1) Alcohol dependence Current Visit: Yes Qualifiers: Complication of substance-induced condition: with unspecified complication (2) Hypercholesteremia Current Visit: Yes (3) Nicotine dependence Current Visit: Yes Qualifiers: Nicotine product type: cigarettes Substance use status: uncomplicated Qualified Code(s): F17.210 - Nicotine dependence, cigarettes, uncomplicated (4) Paranoid schizophrenia Current Visit: Yes (5) Use of cane as ambulatory aid Current Visit: Yes
[2016-05-31] MEDS: PANTOPRAZOLE 40 MG TABLET (FP) PO SCH (10:07)
[2016-05-31] MEDS: RITONAVIR 100 MG TABLET PO SCH (10:07)
[2016-05-31] MEDS: PRENATAL VITAMINS W/ FOLIC ACID TABLET (FP) PO SCH (10:07)
[2016-05-31] MEDS: HYDROCHLOROTHIAZIDE 25 MG TABLET (FP) PO SCH (10:07)
[2016-05-31] MEDS: METOPROLOL SUCCINATE 25 MG TAB.SR.24H (FP) PO SCH (10:07)
[2016-05-31] MEDS: DARUNAVIR ETHANOLATE 800 MG TAB PO SCH (10:07)
[2016-05-31] MEDS: levETIRAcetam 500 MG TABLET (FP) PO SCH (10:07)
[2016-05-31] MEDS: DAPSONE 100 MG TABLET PO SCH (10:08)
[2016-05-31] MEDS: ABACAVIR SULFATE 300 MG TABLET PO SCH (10:08)
[2016-05-31] MEDS: PARoxetine HCL 20 MG TABLET (FP) PO SCH (10:08)
== END 2016-05-31 10:55 | disposition home or self-care (01) | DRG 895 ==
LOC: YASAS 12:01 → Y5N 15:59 → Y3E 16:40 → Y5N 16:42
PROVIDERS: ADMIT Psychiatry & Neurology Psychiatry; ATTEND Psychiatry & Neurology Psychiatry
PROC: HZ42ZZZ Group Counseling for Substance Abuse Treatment, Cognitive-Behavioral (ICD-10-PCS; principal; 2016-05-31)
DX: F10.230 Alcohol dependence with withdrawal, uncomplicated (principal); B20 Human immunodeficiency virus [HIV] disease; F20.0 Paranoid schizophrenia; F17.210 Nicotine dependence, cigarettes, uncomplicated; F32.9 Major depressive disorder, single episode, unspecified; B18.2 Chronic viral hepatitis C; I10 Essential (primary) hypertension; R26.2 Difficulty in walking, not elsewhere classified
CPT/HCPCS: 36415; 80053; 81003; 81015; 85027; 86593; 93005; 93010

== ENCOUNTER 2016-10-13 13:35 | Inpatient (IN) | payer OTHER ==
[2016-10-13 14:09] VITALS: BMI 22.4
[2016-10-13] MEDS ORDERED: MENTHOL/PHENOL 1 EACH UD MM PRN (15:48)
[2016-10-13] MEDS ORDERED: chlordiazePOXIDE HCL 25 MG CAPSULE PO ONE (15:48)
[2016-10-13] MEDS ORDERED: P-EPHED 60MG/TRIPROLIDI 2.5MG TABLET PO PRN (15:48)
[2016-10-13] MEDS ORDERED: diphenhydrAMINE HCL 50 MG CAPSULE PO PRN (15:48)
[2016-10-13] MEDS ORDERED: LOPERAMIDE HCL 2 MG CAPSULE PO PRN (15:48)
[2016-10-13] MEDS ORDERED: ACETAMINOPHEN 325 MG TABLET (FP) PO PRN (15:48)
[2016-10-13] MEDS ORDERED: chlordiazePOXIDE HCL 25 MG CAPSULE PO PRN (15:48)
[2016-10-13] MEDS ORDERED: hydrOXYzine PAMOATE 50 MG CAPSULE (FP) PO PRN (15:48)
[2016-10-13] MEDS ORDERED: MAG HYDROX/AL HYDROX/SIMETH 30 ML UNIT-DOSE CUP PO PRN (15:48)
[2016-10-13] MEDS ORDERED: guaiFENesin/D-METHORPHAN HB 10 ML UNIT-DOSE CUPS PO PRN (15:48)
[2016-10-13] MEDS ORDERED: MAGNESIUM CITRATE 300 ML BOTTLE PO PRN (15:48)
[2016-10-13] MEDS ORDERED: IBUPROFEN 400 MG TABLET (FP) PO PRN (15:48)
[2016-10-13] MEDS ORDERED: MAGNESIUM HYDROX 2400MG/30ML ORAL SUSPENSION 30 ML CUP PO PRN (15:48)
[2016-10-13] MEDS ORDERED: NICOTINE POLACRILEX 2 MG GUM BC PRN (15:48)
--- NOTE | 2016-10-13 15:48 | HP ---
CIWA Score - CIWA Score Nausea/Vomitin Muscle Tremors: 4-Moderate,w/Arms Extend Anxiety: 4-Mod. Anxious/Guarded Agitation: 4-Moderately Restless Paroxysmal Sweats: 3 Orientation: 0-Oriented Tacttile Disturbances: 1-Very Mild Itch/Numbness Auditory Disturbances: 0-None Visual Disturbances: 0-None Headache: 1-Very Mild CIWA-Ar Total Score: 20 Admission ROS BHS - HPI Chief Complaint: c/o anxiety and alcohol withdrawal sx Allergies/Adverse Reactions: Allergies Allergy/AdvReac Type Severity Reaction Status Date / Time No Known Allergies Allergy Verified 10/13/16 14:48 History of Present Illness: 66 yo m w h/o chronic alcoholism,multiple inpatient detoxifications, last time months ago, several at [facility] [place] last drink today drinks 1 litre vodka and 6 pack beer daily. PMHX HIV+, HTN, elevated cholestrol, depression, cardiac disease on multiple medications which he is on compliant with, last took in august 2016. h/o seizures on keppra but not taking, thinks they were from alcohol. h/o DTS with intubation at [place] long time ago Exam Limitations: No Limitations - Ebola screening Have you traveled outside of the country in the last 21 days: No Have you had contact with anyone from an Ebola affected area: No Have you been sick,other than usual withdrawal symptoms: No Do you have a fever: No - Review of Systems Constitutional: Chills, Diaphoresis, Loss of Appetite, Malaise, Night Sweats, Weakness, Unintentional Wgt. Loss EENT: reports: No Symptoms Reported Cardiac: reports: Palpitations, Syncope (2 days ago while driking) GI: reports: Nausea, Poor Appetite, Poor Fluid Intake, Indigestion, Abdominal cramping : reports: No Symptoms Reported Musculoskeletal: reports: Back Pain, Joint Pain, Muscle Pain, Other (born with polio, s/p 6 operations) Integumentary: reports: Flushing, Sweating Neuro: reports: Seizure (last time in june was on keppra but not taking) Endocrine: reports: No Symptoms Reported Hematology: reports: No Symptoms Reported Psychiatric: reports: Judgement Intact, Mood/Affect Appropiate, Orientated x3, Agitated, Anxious, Depressed Other Systems: Reviewed and Negative Patient History - Patient Medical History Hx Anemia: No Hx Asthma: No Hx Chronic Obstructive Pulmonary Disease (COPD): No Hx Cancer: No Hx Cardiac Disorders: No Hx Congestive Heart Failure: No Hx Hypertension: Yes Hx Hypercholesterolemia: Yes (on meds) Hx Pacemaker: No HX Cerebrovascular Accident: No Hx Seizures: Yes (alcohol related-last episode was in 04/2016) Hx Dementia: No Hx Diabetes: No Hx Gastrointestinal Disorders: Yes (acid reflux) Hx Liver Disease: No Hx Genitourinary Disorders: No Hx Sexually Transmitted Disorders: No Hx Renal Disease (ESRD): No Hx Thyroid Disease: No Hx Human Immunodeficiency Virus (HIV): Yes (HIV 1994) Hx Hepatitis C: Yes Hx Depression: Yes Hx Suicide Attempt: Yes (cut left wrist at age 51) Hx Bipolar Disorder: No Hx Schizophrenia: Yes - Patient Surgical History Past Surgical History: Yes Hx Neurologic Surgery: No Hx Cataract Extraction: No Hx Cardiac Surgery: No Hx Lung Surgery: No Hx Breast Surgery: No Hx Breast Biopsy: No Hx Abdominal Surgery: No Hx Appendectomy: No Hx Cholecystectomy: No Hx Genitourinary Surgery: No Hx Section: No Hx Orthopedic Surgery: Yes (surgery for polio as a child.la lower ext) Other Surgical History: Left inguinal hernia repair in 2004 Anesthesia Reaction: No - PPD History Previous Implant?: Yes Documented Results: Positive w/o proof Implanted On Prior R Admission?: No PPD to be Administered?: No - Reproductive History Patient is a Female of Child Bearing Age (11 -55 yrs old): No Patient : No - Smoking Cessation Smoking history: Current some day smoker Have you smoked in the past 12 months: Yes Aproximately how many cigarettes per day: 3 Cigars Per Day: 0 Hx Chewing Tobacco Use: No Initiated information on smoking cessation: Yes 'Breaking Loose' booklet given: 10/13/16 - Substance & Tx. History Hx Alcohol Use: Yes Hx Substance Use: No Substance Use Type: Alcohol Hx Substance Use Treatment: Yes (many time sinpatient detoxification, ) - Substances Abused Alcohol-vodka/beer Route: Oral Frequency: Daily Amount used: 2 pts./1 case Age of first use: 11 Date of Last Use: 10/13/16 Family Disease History - Family Disease History Family Disease History: Other: Father (/alcoholic), Mother (), Brother (alcoholic/dug abuse) Admission Physical Exam BHS - Vital Signs Vital Signs: Vital Signs - 24 hr 10/13/16 14:04 Temperature 96.2 F L Pulse Rate 102 H Respiratory 20 Rate Blood Pressure 158/99 - Physical General Appearance: Yes: Nourished, Appropriately Dressed, Disheveled, Mild Distress, Alcohol on Breath, Thin, Tremorous, Irritable, Sweating, Anxious HEENTM: Yes: Within Normal Limits, EOMI, Hearing grossly Normal, Normal ENT Inspection, Normocephalic, Normal Voice, THERESA, Pharynx Normal, Other (poor dental hygiene) Respiratory: Yes: Within Normal Limits, Chest Non-Tender, Lungs Clear, Normal Breath Sounds, No Respiratory Distress, No Accessory Muscle Use Neck: Yes: Within Normal Limits, No masses,lesions,Nodules, Supple, Trachea in good position Breast: Yes: Breast Exam Deferred Cardiology: Yes: Within Normal Limits, Regular Rhythm, Regular Rate, S1, S2 Abdominal: Yes: Within Normal Limits, Normal Bowel Sounds, Non Tender, Soft, Protuberent, Distended Genitourinary: Yes: Within Normal Limits Back: Yes: Within Normal Limits, Normal Inspection, Muscle Spasm, Surgical Scar (from polio operation, to r/o cancer), Other (polio) Musculoskeletal: Yes: Back pain, Joint Stiffness, Muscle Pain, Muscle weakness, Other (ambulates with cane) Neurological: Yes: proposal director II-XII NML intact, Fully Oriented, Alert, Motor Strength 5/5, Normal Response, Depressed Affect Integumentary: Yes: Normal Color, Warm, Diaphoresis, Moist, Other (poor skin turgo dehydrated) Lymphatic: Yes: Within Normal Limits - Addiitonal Findings: alcohol withdrawal sx - Diagnostic (1) Low back pain Current Visit: Yes Status: Chronic Qualifiers: Chronicity: chronic (2) Syncope Current Visit: Yes Status: Acute (3) Weight decreased Current Visit: No Status: Acute (4) AIDS Current Visit: No Status: Chronic (5) Alcohol dependence with uncomplicated withdrawal Current Visit: No Status: Chronic Comment: pt was a [facility] from 04/18/16-04/26/16. (6) HIV disease Current Visit: No Status: Chronic (7) Hypercholesteremia Current Visit: No Status: Chronic (8) Hypertension Current Visit: No Status: Chronic (9) Movement disorder Current Visit: No Status: Chronic (10) Nicotine dependence Current Visit: Yes Status: Chronic Qualifiers: Nicotine product type: cigarettes Substance use status: uncomplicated Qualified Code(s): F17.210 - Nicotine dependence, cigarettes, uncomplicated (11) Paranoid schizophrenia Current Visit: Yes Status: Chronic (12) Use of cane as ambulatory aid Current Visit: Yes Status: Chronic Cleared for Admission [facility] - Detox or Rehab [facility] Level of Care: Medically Managed Detox Regimen/Protocol: Librium S Breath Alcohol Content Breath Alcohol Content: 0.111 Urine Drug Screen - Results Drug Screen Negative: Yes
[2016-10-13] MEDS ORDERED: FOLIC ACID 1 MG TABLET (FP) PO SCH (16:00)
[2016-10-13] MEDS: LISINOPRIL 5 MG TABLET (FP) PO SCH (17:43)
[2016-10-13] MEDS: ASPIRIN 81 MG CHEWABLE TABLETS PO SCH (17:43)
[2016-10-13] MEDS: NICOTINE 14 MG/24 HOURS TOPICAL PATCH TD SCH (17:44)
[2016-10-13] MEDS: CLOPIDOGREL BISULFATE 75 MG TABLET (FP) PO SCH (17:44)
[2016-10-13] MEDS: chlordiazePOXIDE HCL 25 MG CAPSULE PO SCH ×2 (17:44→22:16)
[2016-10-13] MEDS: PANTOPRAZOLE 40 MG TABLET (FP) PO SCH (17:44)
[2016-10-13] MEDS: FOLIC ACID 1 MG TABLET (FP) PO SCH (17:51)
[2016-10-13 21:34] LABS: URINE APPEARANCE CLEAR; URINE BILIRUBIN NEGATIVE (NEGATIVE); URINE BLOOD TRACE-INTA (NEGATIVE); URINE COLOR LT. YELLOW; URINE GLUCOSE (UA) NEGATIVE (NEGATIVE); URINE KETONE NEGATIVE (NEGATIVE); URINE LEUK ESTERASE NEGATIVE (NEGATIVE); URINE NITRITE NEGATIVE (NEGATIVE); URINE UROBILINOGEN 0.2 mg/dL (0.2-1.0)
[2016-10-13 21:37] LABS: URINE PROTEIN 1+ (NEGATIVE)
[2016-10-13 21:50] LABS: URINE MUCUS RARE; URINE RBC 1 /hpf (0-3)
[2016-10-13] MEDS: levETIRAcetam 500 MG TABLET (FP) PO SCH (22:16)
[2016-10-13] MEDS: METOPROLOL SUCCINATE 25 MG TAB.SR.24H (FP) PO SCH (22:16)
[2016-10-13] MEDS: THIAMINE HCL 100 MG TABLET (FP) PO SCH (22:16)
[2016-10-13] MEDS: ROSUVASTATIN CA 20 MG TABLET (FP) PO SCH (22:17)
[2016-10-14] MEDS: chlordiazePOXIDE HCL 25 MG CAPSULE PO SCH ×4 (05:18→22:19)
--- NOTE | 2016-10-14 10:02 | CONSULT ---
[facility] Psychiatric Consult - Data Date of interview: 10/14/16 Admission source: [facility] Identifying data: Readmission to [facility] for this 66 y/o male seeking detox treatment on for alcohol dependence.Patient is ,a father of five,homeless,unemployed and supported on SSI benefits. Substance Abuse History: Confirmed by patient in this interview. Smoking Cessation. Smoking history: Current some day smoker. Have you smoked in the past 12 months: Yes. Aproximately how many cigarettes per day: 3. Cigars Per Day: 0. Hx Chewing Tobacco Use: No. Initiated information on smoking cessation : Yes. 'Breaking Loose' booklet given: 10/13/16. - Substance & Tx. History. Hx Alcohol Use: Yes. Hx Substance Use: No. Substance Use Type: Alcohol. Hx Substance Use Treatment: Yes (many time sinpatient detoxification, ). - Substances Abused. Alcohol-vodka/beer. Route: Oral. Frequency: Daily. Amount used: 2 pts./1 case. Age of first use: 11. Date of Last Use: 10/13/16 Medical History: Remarkable for dyslipidemia,GERD,antecedent of delirium tremens and a history of orthosurgery in childhood (polio).Past history of left inguinal herniorraphy. Psychiatric History: Diagnosed with Paranoid Schizophrenia and Major Depressive Disorder.Patient endorses a history of multiple psychiatric hospitalizations and trials of several antipsychotic medications.Psychiatric profile is also remarkable for chronic non-adherence to OPD care.Mr Jackson was recently discharged from [facility] on a regimen of paxil 40 mg/day + seroquel 100 mg/hs (self-report).Last took these medications in August 2016.Onset of psychiatric disturbances correlates with discovery of HIV seropositivity in 1994.Patient admits to several suicide attempts via various means (self- mutilation,overdoses with medications,deliberate alcohol binges,self-exposure to oncoming traffic and jumping onto train tracks). Physical/Sexual Abuse/Trauma History: No reported history of sexual abuse. Additional Comment: Drug Screen is negative. Mental Status Exam - Mental Status Exam Alert and Oriented to: Time, Place, Person Cognitive Function: Grossly Intact Patient Appearance: Unkempt, Disheveled (appears much older than his stated age, short stature) Mood: Hopeful, Euthymic Affect: Appropriate, Normal Range Patient Behavior: Fatigued, Appropriate, Cooperative (friendly,well-mannered) Speech Pattern: Clear (speaks fair belarusian) Voice Loudness: Normal Thought Process: Goal Oriented Thought Disorder: Not Present Hallucinations: Denies Suicidal Ideation: Denies Homicidal Ideation: Denies Insight/Judgement: Poor Sleep: Poorly, Difficulty falling asleep Appetite: Fair Gait/Station: Normal (steady gait) Psychiatric Findings - Problem List ([place] 1, 2,3) (1) Paranoid schizophrenia Current Visit: Yes Status: Chronic (2) Alcohol dependence with uncomplicated withdrawal Current Visit: Yes Status: Acute Comment: pt was a [facility] from 04/18/16-04/26/16. (3) Nicotine dependence Current Visit: Yes Status: Acute Qualifiers: Nicotine product type: cigarettes Substance use status: uncomplicated Qualified Code(s): F17.210 - Nicotine dependence, cigarettes, uncomplicated (4) Low back pain Current Visit: Yes Status: Chronic Qualifiers: Chronicity: chronic (5) Weight decreased Current Visit: Yes Status: Chronic (6) AIDS Current Visit: Yes Status: Chronic (7) Use of cane as ambulatory aid Current Visit: Yes Status: Chronic (8) Insomnia Current Visit: Yes Status: Acute - Initial Treatment Plan Initial Treatment Plan: Psychoeducation.Detoxification.Medications : paxil 20 mg po daily + seroquel 100 mg po hs.Doses are intentionally reduced due to enduring non-compliance to medications.Side effects/benefits of each drug are diuscussed with the patient.Mr Jackson agrees with this plan of care.Observation.
[2016-10-14] MEDS: PANTOPRAZOLE 40 MG TABLET (FP) PO SCH (10:16)
[2016-10-14] MEDS: CLOPIDOGREL BISULFATE 75 MG TABLET (FP) PO SCH (10:17)
[2016-10-14] MEDS: levETIRAcetam 500 MG TABLET (FP) PO SCH ×2 (10:17→22:20)
[2016-10-14] MEDS: METOPROLOL SUCCINATE 25 MG TAB.SR.24H (FP) PO SCH ×2 (10:17→22:19)
[2016-10-14] MEDS: PRENATAL VITAMINS W/ FOLIC ACID TABLET (FP) PO SCH (10:17)
[2016-10-14] MEDS: FOLIC ACID 1 MG TABLET (FP) PO SCH (10:17)
[2016-10-14] MEDS: LISINOPRIL 5 MG TABLET (FP) PO SCH (10:17)
[2016-10-14] MEDS: ASPIRIN 81 MG CHEWABLE TABLETS PO SCH (10:17)
[2016-10-14] MEDS: NICOTINE 14 MG/24 HOURS TOPICAL PATCH TD SCH (10:18)
[2016-10-14 10:22] LABS: MCH 28.7 pg (25.7-33.7); MCHC 32.3 g/dl (32.0-35.9); PLATELET COUNT 125 K/MM3 (134-434); WHITE BLOOD COUNT 3.9 K/mm3 (4.0-10.0)
[2016-10-14 10:47] LABS: ALBUMIN 3.5 g/dl (3.4-5.0); ANION GAP 10 (8-16); CALCIUM 8.9 mg/dL (8.5-10.1); CO2 24 mmol/L (21-32); GLUCOSE,RANDOM 88 mg/dL (74-106); SGPT/ALT 28 U/L (12-78)
[2016-10-14 10:50] LABS: ALK PHOS 72 U/L (45-117); BILIRUBIN,TOTAL 0.6 mg/dL (0.2-1.0); CREATININE 1.2 mg/dL (0.7-1.3); TOT PROT 8.4 g/dl (6.4-8.2)
[2016-10-14 10:54] LABS: SGOT/AST 44 U/L (15-37)
--- NOTE | 2016-10-14 12:58 | EKG ---
Test Reason : Blood Pressure : / mmHG Vent. Rate : 095 BPM Atrial Rate : 095 BPM P-R Int : 176 ms QRS Dur : 082 ms QT Int : 352 ms P-R-T Axes : 073 056 095 degrees QTc Int : 442 ms BASELINE ABNORMALITIES SINUS RHYTHM. T WAVE ABNORMALITY, CONSIDER LATERAL ISCHEMIA ABNORMAL ECG WHEN COMPARED WITH ECG OF 03-MAY-2016 21:18, T WAVES ARE ALSO INVERTED IN V3 REPEAT EKG IF CLINICALLY INDICATED Confirmed by YASMANI GRIMM MD ([id number]) on 10/14/2016 12:58:18 PM Referred By: Confirmed By:YASMANI GRIMM MD
--- NOTE | 2016-10-14 14:53 | PN ---
[facility] CIWA - CIWA Score Nausea/Vomitin-No Nausea/No Vomiting Muscle Tremors: 5 Anxiety: 4-Mod. Anxious/Guarded Agitation: 1-Slight > Activity Paroxysmal Sweats: 2 Orientation: 0-Oriented Tacttile Disturbances: 0-None Auditory Disturbances: 2-Mild Harshness/Frighten Visual Disturbances: 3-Moderate Sensitivity Headache: 0-None Present CIWA-Ar Total Score: 17 S Progress Note (SOAP) Subjective: Interrupted sleep, Tremors, Body Aches. Objective: PT. A & O X 3, OBSERVED AMBULATING ON UNIT WITH ASSISTANCE OF A CANE. NO ACUTE DISTRESS. PT. DENIES CHEST PAIN. 10/14/16 14:51 Vital Signs Temperature 97.1 F L 10/14/16 14:11 Pulse Rate 84 10/14/16 14:11 Respiratory Rate 20 10/14/16 14:11 Blood Pressure 110/74 10/14/16 14:11 O2 Sat by Pulse Oximetry (%) Laboratory Tests 10/13/16 10/14/16 10/14/16 21:20 06:00 06:00 WBC 3.9 L RBC 4.44 Hgb 12.8 Hct 39.5 MCV 89.0 MCH 28.7 MCHC 32.3 RDW 13.0 D Plt Count 125 L D MPV 11.0 D Sodium 137 Potassium 4.4 Chloride 103 Carbon Dioxide 24 Anion Gap 10 BUN 19 H D Creatinine 1.2 Creat Clearance w eGFR > 60 Random Glucose 88 Calcium 8.9 Total Bilirubin 0.6 AST 44 H D ALT 28 D Alkaline Phosphatase 72 Total Protein 8.4 H Albumin 3.5 D Urine Color Lt. yellow Urine Appearance Clear Urine pH 6.0 Ur Specific [place] <= 1.005 Urine Protein 1+ H Urine Glucose (UA) Negative Urine Ketones Negative Urine Blood Trace-inta Urine Nitrite Negative Urine Bilirubin Negative Urine Urobilinogen 0.2 Ur Leukocyte Esterase Negative Urine RBC 1 Urine WBC None Ur Epithelial Cells Rare Urine Mucus Rare RPR Titer 10/14/16 06:00 WBC RBC Hgb Hct MCV MCH MCHC RDW Plt Count MPV Sodium Potassium Chloride Carbon Dioxide Anion Gap BUN Creatinine Creat Clearance w eGFR Random Glucose Calcium Total Bilirubin AST ALT Alkaline Phosphatase Total Protein Albumin Urine Color Urine Appearance Urine pH Ur Specific [place] Urine Protein Urine Glucose (UA) Urine Ketones Urine Blood Urine Nitrite Urine Bilirubin Urine Urobilinogen Ur Leukocyte Esterase Urine RBC Urine WBC Ur Epithelial Cells Urine Mucus RPR Titer Nonreactive LABS NOTED. LEVETIRACETAM LEVEL PENDING. 10/14/16 14:53 10/14/16 14:53 Assessment: 10/14/16 14:52 WITHDRAWAL SYMPTOMS. Plan: CONTINUE DETOX.
[2016-10-14] MEDS ORDERED: ARTIFICIAL TEARS (POLYVINYL ALCOHOL 1.4%) OPTH DROPS OU PRN (14:54)
[2016-10-14] MEDS: THIAMINE HCL 100 MG TABLET (FP) PO SCH (22:20)
[2016-10-14] MEDS: QUEtiapine FUMARATE 100 MG TABLET (FP) PO SCH (22:20)
[2016-10-14] MEDS: ROSUVASTATIN CA 20 MG TABLET (FP) PO SCH (23:19)
[2016-10-15] MEDS: chlordiazePOXIDE HCL 25 MG CAPSULE PO SCH ×2 (05:14→10:11)
[2016-10-15] MEDS: CLOPIDOGREL BISULFATE 75 MG TABLET (FP) PO SCH (10:09)
[2016-10-15] MEDS: METOPROLOL SUCCINATE 25 MG TAB.SR.24H (FP) PO SCH ×2 (10:09→22:14)
[2016-10-15] MEDS: LISINOPRIL 5 MG TABLET (FP) PO SCH (10:09)
[2016-10-15] MEDS: PARoxetine HCL 20 MG TABLET (FP) PO SCH (10:10)
[2016-10-15] MEDS: PANTOPRAZOLE 40 MG TABLET (FP) PO SCH (10:10)
[2016-10-15] MEDS: PRENATAL VITAMINS W/ FOLIC ACID TABLET (FP) PO SCH (10:10)
[2016-10-15] MEDS: ASPIRIN 81 MG CHEWABLE TABLETS PO SCH (10:10)
[2016-10-15] MEDS: levETIRAcetam 500 MG TABLET (FP) PO SCH ×2 (10:10→22:14)
[2016-10-15] MEDS: NICOTINE 14 MG/24 HOURS TOPICAL PATCH TD SCH (10:11)
[2016-10-15] MEDS: FOLIC ACID 1 MG TABLET (FP) PO SCH (11:25)
--- NOTE | 2016-10-15 14:23 | PN ---
[facility] CIWA - CIWA Score Nausea/Vomitin Muscle Tremors: 4-Moderate,w/Arms Extend Anxiety: 2 Agitation: 2 Paroxysmal Sweats: 3 Orientation: 0-Oriented Tacttile Disturbances: 2-Mild Itch/Numbness/Burn Auditory Disturbances: 2-Mild Harshness/Frighten Visual Disturbances: 0-None Headache: 0-None Present CIWA-Ar Total Score: 17 S Progress Note (SOAP) Subjective: Sweating, Tremors, Body Aches, Interrupted sleep. Objective: PT. A & O X 3, OBSERVED AMBULATING ON UNIT WITH ASSISTANCE OF A CANE. NO ACUTE DISTRESS. PT. DENIES CHEST PAIN. 10/15/16 14:19 Vital Signs Temperature 97.0 F L 10/15/16 14:19 Pulse Rate 80 10/15/16 14:19 Respiratory Rate 18 10/15/16 14:19 Blood Pressure 133/81 10/15/16 14:19 O2 Sat by Pulse Oximetry (%) Laboratory Tests 10/13/16 10/14/16 10/14/16 21:20 06:00 06:00 WBC 3.9 L RBC 4.44 Hgb 12.8 Hct 39.5 MCV 89.0 MCH 28.7 MCHC 32.3 RDW 13.0 D Plt Count 125 L D MPV 11.0 D Sodium 137 Potassium 4.4 Chloride 103 Carbon Dioxide 24 Anion Gap 10 BUN 19 H D Creatinine 1.2 Creat Clearance w eGFR > 60 Random Glucose 88 Calcium 8.9 Total Bilirubin 0.6 AST 44 H D ALT 28 D Alkaline Phosphatase 72 Total Protein 8.4 H Albumin 3.5 D Urine Color Lt. yellow Urine Appearance Clear Urine pH 6.0 Ur Specific [place] <= 1.005 Urine Protein 1+ H Urine Glucose (UA) Negative Urine Ketones Negative Urine Blood Trace-inta Urine Nitrite Negative Urine Bilirubin Negative Urine Urobilinogen 0.2 Ur Leukocyte Esterase Negative Urine RBC 1 Urine WBC None Ur Epithelial Cells Rare Urine Mucus Rare RPR Titer 10/14/16 06:00 WBC RBC Hgb Hct MCV MCH MCHC RDW Plt Count MPV Sodium Potassium Chloride Carbon Dioxide Anion Gap BUN Creatinine Creat Clearance w eGFR Random Glucose Calcium Total Bilirubin AST ALT Alkaline Phosphatase Total Protein Albumin Urine Color Urine Appearance Urine pH Ur Specific [place] Urine Protein Urine Glucose (UA) Urine Ketones Urine Blood Urine Nitrite Urine Bilirubin Urine Urobilinogen Ur Leukocyte Esterase Urine RBC Urine WBC Ur Epithelial Cells Urine Mucus RPR Titer Nonreactive LABS NOTED. LEVETIRACETAM LEVEL PENDING. 10/15/16 14:22 Assessment: 10/15/16 14:21 WITHDRAWAL SYMPTOMS. Plan: CONTINUE DETOX.
[2016-10-15] MEDS: chlordiazePOXIDE 5 MG CAPSULE PO SCH ×2 (17:44→22:14)
[2016-10-15] MEDS: ROSUVASTATIN CA 20 MG TABLET (FP) PO SCH (22:14)
[2016-10-15] MEDS: QUEtiapine FUMARATE 100 MG TABLET (FP) PO SCH (22:14)
[2016-10-15] MEDS: THIAMINE HCL 100 MG TABLET (FP) PO SCH (22:15)
[2016-10-16] MEDS: chlordiazePOXIDE 5 MG CAPSULE PO SCH ×2 (05:49→10:09)
[2016-10-16] MEDS: PARoxetine HCL 20 MG TABLET (FP) PO SCH (10:09)
[2016-10-16] MEDS: PANTOPRAZOLE 40 MG TABLET (FP) PO SCH (10:09)
[2016-10-16] MEDS: LISINOPRIL 5 MG TABLET (FP) PO SCH (10:09)
[2016-10-16] MEDS: PRENATAL VITAMINS W/ FOLIC ACID TABLET (FP) PO SCH (10:09)
[2016-10-16] MEDS: METOPROLOL SUCCINATE 25 MG TAB.SR.24H (FP) PO SCH ×2 (10:09→22:14)
[2016-10-16] MEDS: FOLIC ACID 1 MG TABLET (FP) PO SCH (10:09)
[2016-10-16] MEDS: NICOTINE 14 MG/24 HOURS TOPICAL PATCH TD SCH (10:10)
[2016-10-16] MEDS: CLOPIDOGREL BISULFATE 75 MG TABLET (FP) PO SCH (10:10)
[2016-10-16] MEDS: ASPIRIN 81 MG CHEWABLE TABLETS PO SCH (10:10)
[2016-10-16] MEDS: levETIRAcetam 500 MG TABLET (FP) PO SCH ×2 (10:10→22:14)
[2016-10-16] MEDS: LIDOCAINE 5% TOPICAL PATCH TP SCH (10:46)
--- NOTE | 2016-10-16 12:17 | PN ---
[facility] Progress Note (SOAP) Subjective: Tremors, Body Aches, Sweating. Objective: PT. A & O X 3, OBSERVED AMBULATING ON UNIT WITH ASSISTANCE OF A CANE. NO ACUTE DISTRESS. 10/16/16 12:14 Vital Signs Temperature 97.7 F 10/16/16 09:14 Pulse Rate 78 10/16/16 09:14 Respiratory Rate 18 10/16/16 09:14 Blood Pressure 136/78 10/16/16 09:14 O2 Sat by Pulse Oximetry (%) Laboratory Tests 10/13/16 10/14/16 10/14/16 21:20 06:00 06:00 WBC 3.9 L RBC 4.44 Hgb 12.8 Hct 39.5 MCV 89.0 MCH 28.7 MCHC 32.3 RDW 13.0 D Plt Count 125 L D MPV 11.0 D Sodium 137 Potassium 4.4 Chloride 103 Carbon Dioxide 24 Anion Gap 10 BUN 19 H D Creatinine 1.2 Creat Clearance w eGFR > 60 Random Glucose 88 Calcium 8.9 Total Bilirubin 0.6 AST 44 H D ALT 28 D Alkaline Phosphatase 72 Total Protein 8.4 H Albumin 3.5 D Urine Color Lt. yellow Urine Appearance Clear Urine pH 6.0 Ur Specific [place] <= 1.005 Urine Protein 1+ H Urine Glucose (UA) Negative Urine Ketones Negative Urine Blood Trace-inta Urine Nitrite Negative Urine Bilirubin Negative Urine Urobilinogen 0.2 Ur Leukocyte Esterase Negative Urine RBC 1 Urine WBC None Ur Epithelial Cells Rare Urine Mucus Rare RPR Titer 10/14/16 06:00 WBC RBC Hgb Hct MCV MCH MCHC RDW Plt Count MPV Sodium Potassium Chloride Carbon Dioxide Anion Gap BUN Creatinine Creat Clearance w eGFR Random Glucose Calcium Total Bilirubin AST ALT Alkaline Phosphatase Total Protein Albumin Urine Color Urine Appearance Urine pH Ur Specific [place] Urine Protein Urine Glucose (UA) Urine Ketones Urine Blood Urine Nitrite Urine Bilirubin Urine Urobilinogen Ur Leukocyte Esterase Urine RBC Urine WBC Ur Epithelial Cells Urine Mucus RPR Titer Nonreactive LABS NOTED. LEVETIRACETAM LEVEL PENDING. 10/16/16 12:16 Assessment: 10/16/16 12:15 WITHDRAWAL SYMPTOMS. Plan: CONTINUE DETOX.
[2016-10-16] MEDS: chlordiazePOXIDE HCL 10 MG CAPSULE PO SCH ×2 (17:34→22:13)
[2016-10-16] MEDS ORDERED: LIDOCAINE PATCH REMOVAL MC SCH (22:00)
[2016-10-16] MEDS: THIAMINE HCL 100 MG TABLET (FP) PO SCH (22:14)
[2016-10-16] MEDS: QUEtiapine FUMARATE 100 MG TABLET (FP) PO SCH (22:14)
[2016-10-16] MEDS: ROSUVASTATIN CA 20 MG TABLET (FP) PO SCH (22:14)
[2016-10-17] MEDS: chlordiazePOXIDE HCL 10 MG CAPSULE PO SCH ×2 (05:31→12:55)
[2016-10-17 09:01] VITALS: BP 132/81; PULSE 82; TEMP 97.7
--- NOTE | 2016-10-17 09:17 | DS ---
[facility] Detox Discharge Summary Admission Date: 10/13/16 Discharge Date: 10/17/16 - History Present History: Alcohol Dependence Additional Comments: DETOX COMPLETED.ALERT O X 3.NAD. FOLLOW UP WITH PMD AT [facility]. Pertinent Past History: HTN HYPERCHOLESTEROLEMIA SEIZURE DISORDER GERD HEP C - Physical Exam Results Vital Signs: Vital Signs Temperature 97.1 F L 10/17/16 06:24 Pulse Rate 85 10/17/16 06:24 Respiratory Rate 18 10/17/16 06:24 Blood Pressure 134/87 10/17/16 06:24 O2 Sat by Pulse Oximetry (%) Pertinent Admission Physical Exam Findings: WITHDRAWAL SX Laboratory Last Values WBC 3.9 K/mm3 (4.0-10.0) L 10/14/16 06:00 RBC 4.44 M/mm3 (4.00-5.60) 10/14/16 06:00 Hgb 12.8 GM/dL (11.7-16.9) 10/14/16 06:00 Hct 39.5 % (35.4-49) 10/14/16 06:00 MCV 89.0 fl (80-96) 10/14/16 06:00 MCH 28.7 pg (25.7-33.7) 10/14/16 06:00 MCHC 32.3 g/dl (32.0-35.9) 10/14/16 06:00 RDW 13.0 % (11.9-15.9) D 10/14/16 06:00 Plt Count 125 K/MM3 (134-434) L D 10/14/16 06:00 MPV 11.0 fl (7.5-11.1) D 10/14/16 06:00 Sodium 137 mmol/L (136-145) 10/14/16 06:00 Potassium 4.4 mmol/L (3.5-5.1) 10/14/16 06:00 Chloride 103 mmol/L (98-107) 10/14/16 06:00 Carbon Dioxide 24 mmol/L (21-32) 10/14/16 06:00 Anion Gap 10 (8-16) 10/14/16 06:00 BUN 19 mg/dL (7-18) H D 10/14/16 06:00 Creatinine 1.2 mg/dL (0.7-1.3) 10/14/16 06:00 Creat Clearance w eGFR > 60 (>60) 10/14/16 06:00 Random Glucose 88 mg/dL (74-106) 10/14/16 06:00 Calcium 8.9 mg/dL (8.5-10.1) 10/14/16 06:00 Total Bilirubin 0.6 mg/dL (0.2-1.0) 10/14/16 06:00 AST 44 U/L (15-37) H D 10/14/16 06:00 ALT 28 U/L (12-78) D 10/14/16 06:00 Alkaline Phosphatase 72 U/L (45-117) 10/14/16 06:00 Total Protein 8.4 g/dl (6.4-8.2) H 10/14/16 06:00 Albumin 3.5 g/dl (3.4-5.0) D 10/14/16 06:00 Urine Color Lt. yellow 10/13/16 21:20 Urine Appearance Clear 10/13/16 21:20 Urine pH 6.0 (5.0-8.0) 10/13/16 21:20 Ur Specific [place] <= 1.005 (1.005-1.025) 10/13/16 21:20 Urine Protein 1+ (NEGATIVE) H 10/13/16 21:20 Urine Glucose (UA) Negative (NEGATIVE) 10/13/16 21:20 Urine Ketones Negative (NEGATIVE) 10/13/16 21:20 Urine Blood Trace-inta (NEGATIVE) 10/13/16 21:20 Urine Nitrite Negative (NEGATIVE) 10/13/16 21:20 Urine Bilirubin Negative (NEGATIVE) 10/13/16 21:20 Urine Urobilinogen 0.2 mg/dL (0.2-1.0) 10/13/16 21:20 Ur Leukocyte Esterase Negative (NEGATIVE) 10/13/16 21:20 Urine RBC 1 /hpf (0-3) 10/13/16 21:20 Urine WBC None /hpf (3-5) 10/13/16 21:20 Ur Epithelial Cells Rare /hpf (FEW) 10/13/16 21:20 Urine Mucus Rare 10/13/16 21:20 RPR Titer Nonreactive (NONREACTIVE) 10/14/16 06:00 - Treatment Hospital Course: Detox Protocol Followed, Detoxed Safely, Responded well, Discharged Condition Good - Medication Discharge Medications: Ambulatory Orders Levetiracetam [Keppra -] 500 mg PO BID #60 tablet 06/29/14 Pantoprazole Sodium [Protonix -] 40 mg PO DAILY #30 tablet.ec 07/23/14 Abacavir Sulfate/Lamivudine [Abacavir-Lamivudine 600-300 mg] 1 each PO DAILY 02/28 Aspirin [ASA -] 81 mg PO DAILY 10/13/16 Clopidogrel Bisulfate [Clopidogrel] 75 mg PO DAILY 10/13/16 Folic Acid - 1 mg PO DAILY 10/13/16 Lisinopril [Zestril] 5 mg PO DAILY 10/13/16 Metoprolol Succinate [Toprol XL -] 12.5 mg PO Q12H 10/13/16 Multivitamins [Tab-A-Vit -] 1 tab PO DAILY 10/13/16 Rosuvastatin [Crestor -] 20 mg PO HS 10/13/16 Sertraline HCl [Zoloft -] 100 mg PO DAILY 10/13/16 Paroxetine HCl [Paxil -] 20 mg PO DAILY #30 tablet 10/14/16 Quetiapine Fumarate [Seroquel -] 200 mg PO HS #30 tab 10/14/16 - Diagnosis (1) Alcohol dependence with uncomplicated withdrawal Status: Acute (2) Insomnia Status: Acute (3) Nicotine dependence Status: Acute Qualifiers: Nicotine product type: cigarettes Substance use status: uncomplicated Qualified Code(s): F17.210 - Nicotine dependence, cigarettes, uncomplicated (4) AIDS Status: Chronic (5) Hypercholesteremia Status: Chronic (6) Low back pain Status: Chronic Qualifiers: Chronicity: chronic (7) Use of cane as ambulatory aid Status: Chronic (8) Hypertension Status: Chronic Qualifiers: Hypertension type: essential hypertension Qualified Code(s): I10 - Essential (primary) hypertension (9) GERD (gastroesophageal reflux disease) Status: Chronic Qualifiers: Esophagitis presence: without esophagitis Qualified Code(s): K21.9 - Gastro-esophageal reflux disease without esophagitis (10) History of hepatitis C Status: Chronic - AMA Did Patient Leave Against Medical Advice: No
[2016-10-17] MEDS: LIDOCAINE 5% TOPICAL PATCH TP SCH (10:15)
[2016-10-17] MEDS: PRENATAL VITAMINS W/ FOLIC ACID TABLET (FP) PO SCH (10:16)
[2016-10-17] MEDS: levETIRAcetam 500 MG TABLET (FP) PO SCH (10:16)
[2016-10-17] MEDS: LISINOPRIL 5 MG TABLET (FP) PO SCH (10:16)
[2016-10-17] MEDS: PARoxetine HCL 20 MG TABLET (FP) PO SCH (10:16)
[2016-10-17] MEDS: ASPIRIN 81 MG CHEWABLE TABLETS PO SCH (10:16)
[2016-10-17] MEDS: PANTOPRAZOLE 40 MG TABLET (FP) PO SCH (10:16)
[2016-10-17] MEDS: CLOPIDOGREL BISULFATE 75 MG TABLET (FP) PO SCH (10:16)
[2016-10-17] MEDS: METOPROLOL SUCCINATE 25 MG TAB.SR.24H (FP) PO SCH (10:16)
[2016-10-17] MEDS: NICOTINE 14 MG/24 HOURS TOPICAL PATCH TD SCH (10:16)
[2016-10-17] MEDS: FOLIC ACID 1 MG TABLET (FP) PO SCH (10:18)
== END 2016-10-17 13:03 | disposition home or self-care (01) | DRG 896 ==
LOC: YASAS 13:35 → Y3N 16:50
PROVIDERS: ADMIT Internal Medicine Addiction Medicine; ATTEND Internal Medicine Addiction Medicine
PROC: HZ2ZZZZ Detoxification Services for Substance Abuse Treatment (ICD-10-PCS; principal; 2016-10-13)
DX: F10.230 Alcohol dependence with withdrawal, uncomplicated (principal); B20 Human immunodeficiency virus [HIV] disease; F20.0 Paranoid schizophrenia; G25.9 Extrapyramidal and movement disorder, unspecified; F17.210 Nicotine dependence, cigarettes, uncomplicated; B18.2 Chronic viral hepatitis C; E78.5 Hyperlipidemia, unspecified; I10 Essential (primary) hypertension; K21.9 Gastro-esophageal reflux disease without esophagitis; M54.5 Low back pain; G89.29 Other chronic pain; G40.909 Epilepsy, unspecified, not intractable, without status epilepticus; R26.2 Difficulty in walking, not elsewhere classified; Z99.89 Dependence on other enabling machines and devices; Z87.898 Personal history of other specified conditions; Z91.5 Personal history of self-harm; Z86.79 Personal history of other diseases of the circulatory system
CPT/HCPCS: 36415; 71020-TC; 80053; 81003; 81015; 85027; 86593; 93005; 93010